=== PATIENT | male | born 1945 | race Caucasian/White ===

== ENCOUNTER → 2022-07-28 10:49 | Outpatient (BNVA) | payer OTHER, SELFPAY | PROVIDERS: PCP Internal Medicine; Visit Provider Internal Medicine Cardiovascular Disease | DX: R42 Dizziness and giddiness (principal) | CPT/HCPCS: 93225 ==

== ENCOUNTER 2023-02-20 14:43 | Emergency (ER) | payer OTHER, SELFPAY ==
[2023-02-20] VITALS (7 sets, daily range): BP systolic 101–147; BP diastolic 64–79; PULSE 75–111; RESP 16–21; TEMP 36.8; O2SAT 95–97; BMI 21.2
--- NOTE | 2023-02-20 16:09 | CTR_ITS ---
PROCEDURE INFORMATION: Exam: CT Head Without Contrast Exam date and time: 02/20/2023 4:22 PM Age: 78 years old Clinical indication: Altered mental status/memory loss and walking, difficulty; Additional info: Abnormal gait TECHNIQUE: Imaging protocol: Computed tomography of the head without contrast. Radiation optimization: All CT scans at this facility use at least one of these dose optimization techniques: automated exposure control; mA and/or kV adjustment per patient size (includes targeted exams where dose is matched to clinical indication); or iterative reconstruction. REPORTING DATA: Count of CT and Cardiac NM exams in prior 12 months: This patient has received 0 known CTs and 0 known cardiac nuclear medicine studies in the 12 months prior to the current study. COMPARISON: No relevant prior studies available. RADIATION DOSE METRICS: Total DLP (mGy-cm): 1037.39 FINDINGS: Brain: Moderate diffuse cortical volume loss. Mild-moderate hypodensities in supratentorial periventricular and subcortical white matter, consistent with microangiopathy. 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 No intracranial hemorrhage. Cerebral ventricles: No ventriculomegaly. Paranasal sinuses: Chronic opacification the right maxillary sinus. The other sinuses are clear. Mastoid air cells: Visualized mastoid air cells are well aerated. Orbital cavities: Prior cataract surgery. Bones/joints: Unremarkable. No acute fracture. Soft tissues: Unremarkable. Vasculature: No hyperdense artery. CT/CT head wo con* [id number] IMPRESSION: 1. No acute intracranial abnormality.
[2023-02-20 16:47] LABS: Basophils % 0.2 %; Hematocrit 45.7 % (42.0-52.0); Hemoglobin 14.8 g/dL (11.7-16.6); Lymphocytes # 0.4 10^3/uL (0.8-4.8); Lymphocytes % 3.8 %; Mean Corpuscular HGB Conc 32.4 g/dL (30.0-36.0); Mean Corpuscular Hemoglobin 32.6 pg (28.0-34.0); Mean Corpuscular Volume 100.7 fl (80-94); Mean Platelet Volume 11.7 fL (7.4-10.4); Monocytes # 0.4 10^3/uL (0.2-0.9); Monocytes % 3.9 %; Neutrophils % 91.7 %; Nucleated Red Blood Cells % 0 %; Platelet Count 178 10^3/cmm (130-400); Red Blood Count 4.54 10^6/uL (4.1-5.3); Red Cell Distribution Width 13.4 % (12.1-15.1); White Blood Count 10.9 10^3/uL (4.0-10.0)
[2023-02-20 17:41] LABS: Alanine Aminotransferase 7 U/L (0-41); Albumin Level 3.5 g/dL (3.5-5.2); Alkaline Phosphatase 107 U/L (40-130); Anion Gap 13.9 (5-19); Aspartate Amino Transferase 14 U/L (0-40); Blood Urea Nitrogen 24 mg/dL (8-23); Calcium 8.4 mg/dL (8.5-10.5); Carbon Dioxide 24 mmol/L (22-29); Chloride 105 mmol/L (98-107); Globulin 2.8 g/dL (1.3-4.6); Glucose 107 mg/dL (65-115); Magnesium 1.8 mg/dL (1.7-2.3); Osmolality Calculated 293 mOsm/kg (285-295); Potassium 3.9 mmol/L (3.5-5.1); Sodium 139 mmol/L (136-145); Total Bilirubin 0.5 mg/dL (0.15-1.2); Total Protein 6.3 g/dL (6.6-8.7)
[2023-02-20 18:26] LABS: Add Urine Microscopic? YES; Bilirubin Urine Neg (Negative); Blood Urine 3+ (Negative); Glucose Urine UA Norm (Normal); Ketones Urine Negative (Negative); Leukocyte Esterase Urine 1+ (Negative); Nitrate Urine Negative (Negative); Protein Urine Neg (Negative); Urine Appearance Hazy (CLEAR); Urine Color Yellow (Yellow); Urobilinogen Urine Norm (Negative); pH Urine 5 (5-7)
--- NOTE | 2023-02-20 18:30 | W.ED.GENADLT ---
HPI - General Adult General: Chief complaint: General Medical Stated complaint: bp high, hips hurt Time Seen by Provider: 02/20/23 15:49 History of Present Illness: 78-year-old male brought to emergency room by his son for vague complaints of weakness and dizziness for about a year now. Cording to the son patient has had multiple work-up done including MRI CT scan and blood work. She was seen a few hospital including the [facility]. Patient was having some symptoms tonight where he felt dizzy with low blood pressure. Upon presenting to emergency room patient is awake and alert no acute distress denies any headache, chest pain, nausea, vomiting, diarrhea or bloody stool. No numbness or tingling. Associated symptoms: Deny confusion, dyspnea, headache(s) or rash Review of Systems General: Reports: 10 or more systems reviewed and unremarkable except in HPI and below Resp: Denies: dyspnea, productive cough, non-productive cough, wheezing, stridor, pain on inspiration, change in phlegm color, hemoptysis or chest congestion : Denies: flank pain, difficulty urinating, dysuria, urinary frequency, urinary urgency, urinary hesitancy, urinary dribbling, difficulty starting urination, change in urine stream, nocturia, oliguria, hematuria, genital pain, genital lesions or penile discharge Skin/Breast: Denies: rash, pruritus, erythema, photosensitivity, skin tenderness, skin swelling, sores, new lesions or changing lesions Neuro: Reports: dizziness; Denies: headache(s), numbness in extremities, sensory changes, lack of coordination, vertigo, confusion, behavioral changes or difficulty communicating thoughts Physical Exam Const: COMMON NORMALS: patient oriented x3 HENMT: COMMON NORMALS: normocephalic, atraumatic, hearing grossly normal bilaterally, external ears normal, EAC's normal, TM's normal bilaterally, Normal external nose present, Normal nasal mucous membranes and turbinates present, moist oral mucous membranes, oropharynx normal, dentition normal and gingiva normal HEAD & SCALP: normocephalic and atraumatic NOSE: Normal external nose present and Normal nasal mucous membranes and turbinates present EXTERNAL EAR: Yes external ears normal EXTERNAL AUDITORY CANAL: EAC's normal TYMPANIC MEMBRANE: TM's normal bilaterally Neck/C-Spine: COMMON NORMALS: full ROM, no lymphadenopathy, supple, no meningeal signs, no JVD, Thyroid normal and No carotid bruits THYROID: Thyroid normal Chest: COMMONS NORMALS: normal inspection of the chest, normal palpation of entire chest wall, normal inspection of the breasts and normal palpation of the breasts Breast/axilla inspection: Yes normal inspection of the breasts BREAST/AXILLA PALPATION: Yes normal palpation of the breasts Resp: COMMON NORMALS: normal respiratory effort, No retractions, No use of accessory muscles, clear to auscultation bilaterally and percussion normal AUSCULTATION: clear to auscultation bilaterally PERCUSSION: percussion normal Cardio: COMMON NORMALS: no JVD, regular rate, regular rhythm, S1 normal heart sound present, S2 normal heart sound present, No gallops present (Cardio), No clicks present (Cardio), No murmurs present (Cardio), No rub (Cardio) and Peripheral pulses 2+ throughout RATE: regular rate RHYTHM: regular rhythm HEART SOUNDS: S1 normal heart sound present and S2 normal heart sound present PERIPHERAL PULSES: Peripheral pulses 2+ throughout GI: COMMON NORMALS: Normal to inspection, nondistended, normoactive bowel sounds present, Soft to palpation, non-tender, No hepatosplenomegaly present, no masses and no bruits PALPATION: Yes Soft to palpation and Yes No hepatosplenomegaly present : COMMON NORMALS: Yes no CVA tenderness BLADDER/KIDNEY EXAM: Yes no CVA tenderness Back/Pelvis: COMMON NORMALS: no CVA tenderness, thoracic and lumbar spine normal to inspection, no thoracic nor lumbar tenderness, thoraco-lumbar ROM normal and straight leg raise negative bilaterally Neuro: CHARISSE COMA SCALE: document GCS findings COMMON NORMALS: patient oriented x3, CN's II-XII intact bilaterally, moves all extremities, no focal motor deficits and no sensory deficits noted MENINGEAL SIGNS: Yes no meningeal signs GAIT: Yes Normal gait present, No Festinating gait present and No Shuffling gait present Psych: COMMON NORMALS: mental status grossly normal, Normal thought process present, cooperative, normal affect, speech normal, activity/motor behavior normal, denies hallucinations, denies homicidal ideation and denies suicidal ideation SPEECH: Yes normal speech THOUGHT PROCESS: Normal thought process present Course Reevaluation(s): Reevaluation #1: Upon assessment patient was found to be orthostatic and I recommend admission for further evaluation and treatment patient declined admission at this time. Vital Signs: Vital signs: Vital Signs Temperature 98.2 F 02/20/23 14:58 Pulse Rate 81 02/20/23 18:54 Respiratory Rate 17 02/20/23 18:00 Blood Pressure 101/79 02/20/23 18:54 Pulse Oximetry 96 02/20/23 18:00 Oxygen Delivery Me thod Room Air 02/20/23 18:00 MDM - General Adult Medical Decision Making Admit comfortable emergency room. CT scan of the head was obtained. Labs was obtained. Patient had multiple reassessment. Differential Diagnosis CVA, brain bleed, electrolyte abnormality, UTI, Medical Records I reviewed the patient's medical records. Lab Data 02/20/23 16:39 02/20/23 17:[address] 02/20/23 16:09 IMPRESSION: 1. No acute intracranial abnormality. Laboratory Results WBC 10.9 10^3/uL (4.0-10.0) H 02/20/23 16:39 RBC 4.54 10^6/uL (4.1-5.3) 02/20/23 16:39 Hgb 14.8 g/dL (11.7-16.6) 02/20/23 16:39 Hct 45.7 % (42.0-52.0) 02/20/23 16:39 MCV 100.7 fl (80-94) H 02/20/23 16:39 MCH 32.6 pg (28.0-34.0) 02/20/23 16:39 MCHC 32.4 g/dL (30.0-36.0) 02/20/23 16:39 RDW 13.4 % (12.1-15.1) 02/20/23 16:39 Plt Count 178 10^3/cmm (130-400) 02/20/23 16:39 MPV 11.7 fL (7.4-10.4) H 02/20/23 16:39 Neut % (Auto) 91.7 % 02/20/23 16:39 Lymph % (Auto) 3.8 % 02/20/23 16:39 [place] % (Auto) 3.9 % 02/20/23 16:39 Eos % (Auto) 0.0 % 02/20/23 16:39 Baso % (Auto) 0.2 % 02/20/23 16:39 Neut # (Auto) 10.00 10^3/uL (1.8-7.7) H 02/20/23 16:39 Lymph # (Auto) 0.4 10^3/uL (0.8-4.8) L 02/20/23 16:39 [place] # (Auto) 0.4 10^3/uL (0.2-0.9) 02/20/23 16:39 Eos # (Auto) 0.0 10^3/uL (0.0-0.8) 02/20/23 16:39 Baso # (Auto) 0.0 10^3/uL (0.0-0.1) 02/20/23 16:39 Nucleated RBC % (auto) 0 % 02/20/23 16:39 Nucleated RBCs # 0.0 /100WBC 02/20/23 16:39 Sodium 139 mmol/L (136-145) 02/20/23 17:10 Potassium 3.9 mmol/L (3.5-5.1) 02/20/23 17:10 Chloride 105 mmol/L (98-107) 02/20/23 17:10 Carbon Dioxide 24 mmol/L (22-29) 02/20/23 17:10 Anion Gap 13.9 (5-19) 02/20/23 17:10 BUN 24 mg/dL (8-23) H 02/20/23 17:10 Creatinine 1.3 mg/dL (0.7-1.2) H 02/20/23 17:10 GFR Calculation Not Reportable 02/20/23 17:10 Glucose 107 mg/dL (65-115) 02/20/23 17:10 Calculated Osmolality 293 mOsm/kg (285-295) 02/20/23 17:10 Calcium 8.4 mg/dL (8.5-10.5) L 02/20/23 17:10 Magnesium 1.8 mg/dL (1.7-2.3) 02/20/23 17:10 Total Bilirubin 0.5 mg/dL (0.15-1.2) 02/20/23 17:10 AST 14 U/L (0-40) 02/20/23 17:10 ALT 7 U/L (0-41) 02/20/23 17:10 Alkaline Phosphatase 107 U/L (40-130) 02/20/23 17:10 Total Protein 6.3 g/dL (6.6-8.7) L 02/20/23 17:10 Albumin 3.5 g/dL (3.5-5.2) 02/20/23 17:10 Globulin 2.8 g/dL (1.3-4.6) 02/20/23 17:10 Urine Color Yellow (Yellow) 02/20/23 17:40 Urine Appearance Hazy (CLEAR) A 02/20/23 17:40 Urine pH 5 (5-7) 02/20/23 17:40 Ur Specific [place] 1.020 (1.005-1.030) 02/20/23 17:40 Urine Protein Neg (Negative) 02/20/23 17:40 Urine Glucose (UA) Norm (Normal) 02/20/23 17:40 Urine Ketones Negative (Negative) 02/20/23 17:40 Urine Blood 3+ (Negative) H 02/20/23 17:40 Urine Nitrate Negative (Negative) 02/20/23 17:40 Urine Bilirubin Neg (Negative) 02/20/23 17:40 Urine Urobilinogen Norm mg/dL (Negative) 02/20/23 17:40 Ur Leukocyte Esterase 1+ (Negative) H 02/20/23 17:40 Urine RBC 50-80 /hpf (0-2) H 02/20/23 17:40 Urine WBC 5-10 /hpf (0-5) H 02/20/23 17:40 Ur Squamous Epith Cells None /hpf (0-5) 02/20/23 17:40 Amorphous Sediment Not Reportable 02/20/23 17:40 Urine Bacteria Trace /hpf (NONE) 02/20/23 17:40 Urine Mucus 1+ /hpf 02/20/23 17:40 Discharge Plan Discharge Patient Disposition: Home Clinical Impression: Dizziness Condition: Stable Discharge Orders: Discharge ED (Routine); Ordered 02/20/23 Ordered By: Nasir Zee Referrals: Daniel Dozier MD [Primary Care Provider] - Discharge Diet: Advance as tolerated Discharge Activity: Resume usual activity Patient Instructions: Opioid Safety, Pain Management Coding Level of Care Code ED Consulting Analyst for Chg Linden
[2023-02-20 18:33] LABS: Add Urine Culture? Yes; Bacteria Urine TRACE /hpf; Mucus Urine 1+ /hpf; RBC Urine 50-80 /hpf (0-2)
== END 2023-02-20 19:28 | disposition home or self-care (01) ==
PROVIDERS: Emergency Provider Family Medicine; PCP Internal Medicine
DX: R42 Dizziness and giddiness (principal)
CPT/HCPCS: 36415; 70450; 80053; 81001; 83735; 85025; 87077; 87086; 87186; 99284

== ENCOUNTER 2025-01-15 13:52 | Inpatient (IN) | payer OTHER, SELFPAY ==
[2025-01-15] VITALS (85 sets, daily range): BP systolic 121–158; BP diastolic 75–106; PULSE 61–105; RESP 12–29; TEMP 36.4–37; O2SAT 80–98
--- NOTE | 2025-01-15 13:56 | ECG_ITS ---
[employer] Test Date: 2025-01-15 Pat Name: Adair Vaughan Department: Room: Gender: Male [employer] Supervisor: : 1945 Requested By: Akbar Kenney Order Number: [id number] Daniel MD: KIYA PARKER Measurements Intervals [place] Rate: 84 P: 30 ID: [id number] QRS: 11 QRSD: 84 T: 9 QT: 363 QTc: 430 Interpretive Statements SINUS RHYTHM WITH SINUS ARRHYTHMIA MINIMAL VOLTAGE CRITERIA FOR LVH, CONSIDER NORMAL VARIANT [MEETS CRITERIA IN ONE OF: R(aVL), S(V1), R(V5), R(V5/V6)+S(V1)] No previous ECG available for comparison Electronically Signed On 01-17-2025 23:33:47 CDT by KIYA PARKER [email or web address] [id number]
[2025-01-15 14:18] LABS: Basophils % 0.6 %; Eosinophils % 0.1 %; Hematocrit 43.8 % (37-53); Lymphocytes % 14.7 %; Mean Corpuscular HGB Conc 32.2 g/dL (30-55); Mean Corpuscular Hemoglobin 32.3 pg (27-33); Mean Corpuscular Volume 100.2 fl (82-101); Monocytes # 0.5 10^3/uL (0.2-0.9); Monocytes % 7.2 %; Neutrophils # 5.32 10^3/uL (1.8-7.7); Neutrophils % 76.7 %; Nucleated Red Blood Cells % 0 %; Platelet Count 142 10^3/cmm (157-399); Red Blood Count 4.37 10^6/uL (3.85-5.65); Red Cell Distribution Width 13.7 % (12.1-15.1); White Blood Count 6.94 10^3/uL (3.29-11.43)
--- NOTE | 2025-01-15 14:22 | PC.PHAR ---
Patient takes a memory pill and an anxiety pill . Son states that either one knows the name. [facility] strengths.
--- NOTE | 2025-01-15 14:30 | W.ED.SYNCOPE ---
HPI - Syncope General: Chief Complaint: Syncope Stated Complaint: Syncope Time Seen by Provider: 01/15/25 13:55 History of Present Illness: 79-year-old male to the emergency room with syncopal episodes. He had syncope earlier today he fell off of a lawnmower hurt his left shoulder then later in the day fell off of the toilet. He gets lightheaded dizzy whenever he stands up according to his son is with him this is actually being going on intermittently for a couple of years he has [facility] they had evidently not found any ongoing issues. He is not on any antihypertensive. He has no history of DVT or PE no episodes of chest pain associated with the syncopal events. He is not on any anticoagulants he does have some dementia and is on donepezil and memantine. Associated symptoms: Deny abdominal pain, chest pain or fever(s) Related Data Home Medications ?Medication ?Instructions ?Recorded ?Confirmed acetaminophen 325 mg tablet 650 mg PO QID PRN Pain 01/15/25 01/15/25 (Tylenol) donepezil 10 mg tablet 10 mg PO QPM 01/15/25 01/15/25 memantine 10 mg tablet 10 mg PO BID 01/15/25 01/15/25 Allergies Allergy/AdvReac Type Severity Reaction Status Date / Time No Known Allergies Allergy Unverified 02/20/23 15:02 Review of Systems Const: Denies: fever(s) or chills Card: Denies: chest pain Resp: Denies: dyspnea GI: Denies: abdominal pain : Denies: dysuria, urinary frequency or urinary urgency Musc: Reports: joint pain; Denies: neck pain or back pain Skin/Breast: Denies: rash Physical Exam Const: GENERAL APPEARANCE: cooperative ORIENTATION/CONSCIOUSNESS: Yes awake HENMT: COMMON NORMALS: normocephalic, atraumatic and hearing grossly normal bilaterally HEAD & SCALP: normocephalic and atraumatic Resp: COMMON NORMALS: normal respiratory effort, No retractions, No use of accessory muscles and clear to auscultation bilaterally AUSCULTATION: clear to auscultation bilaterally Cardio: COMMON NORMALS: regular rate, regular rhythm and No murmurs present (Cardio) RATE: regular rate RHYTHM: regular rhythm GI: COMMON NORMALS: Soft to palpation and No hepatosplenomegaly present AUSCULTATION: Yes normoactive bowel sounds PALPATION: Yes Soft to palpation, No Tenderness to palpation present (GI), No Guarding due to palpation present (GI) and Yes No hepatosplenomegaly present Extremity: COMMON NORMALS: normal to inspection, capillary refill normal, no clubbing, cyanosis or edema, no calf tenderness and no pedal edema Skin: COMMON NORMALS: no rashes or lesions noted GENERAL SKIN EXAM: no rashes or lesions noted Course Vital Signs: Vital signs: Vital Signs Temperature 97.9 F 01/15/25 13:54 Pulse Rate 75 01/15/25 16:57 Respiratory Rate 14 01/15/25 13:54 Blood Pressure 129/89 01/15/25 16:57 Pulse Oximetry 93 01/15/25 16:57 Oxygen Delivery Me thod Room Air 01/15/25 16:30 MDM - Syncope Medical Decision Making Imaging shows a comminuted clavicle fracture with some AC joint separation. We had also had a CT of the head and neck these were unremarkable CT of the chest shows bilateral PE largest burden on the right, no rib fractures were noted. Clavicle fracture itself would not require admission however syncopal episodes associated with previously and diagnosed PE is quite concerning. Discussed with Dr. Rock he said he would follow along as an inpatient regarding the clavicle fracture he was aware that there is a hematoma about it and that we will need to be anticoagulating the patient because of the PE. Discussed with Dr. Miles after this he will admit to the hospital. Orders are written have included echocardiogram and ultrasound lower extremities for DVT. Discussed findings with the patient and his son that patient has no known previous history of PEs or DVT he has not had any previous history of cancer diagnosis. Medical Records I reviewed the patient's medical records. Lab Data I reviewed the patient's lab results. 01/15/25 14:10 01/15/25 14:10 Radiology Impressions Cervical Spine CT 01/15/25 14:38 IMPRESSION: 1. No acute cervical spine fracture. 2. Extensive facet joint arthropathy greatest on the LEFT. No high-grade central stenosis. Chest CT 01/15/25 14:38 IMPRESSION: 1. Bilateral pulmonary emboli. Largest burden in the proximal RIGHT lower lobe pulmonary artery. Additional more peripheral segmental and subsegmental emboli. 2. No pneumothorax. 3. No pulmonary contusion. 4. LEFT clavicular fracture. Fractures in both the medial and lateral clavicle with adjacent hematoma. 5. No rib fracture identified. There is motion artifact from breathing obscuring detail. Nondisplaced rib or clavicle fracture would be difficult to visualize. 6. Moderate cardiomegaly. 7. Intact thoracic aorta. 8. Hepatic cysts. Notified Akbar Magana DO at 01/15/2025 3:[address] 01/15/25 14:38 IMPRESSION: 1. No acute intracranial hemorrhage or edema. 2. Moderate cerebral and cerebellar volume loss and small vessel disease. 3. Bilateral lacunar infarcts in the basal ganglia. 4. RIGHT maxillary sinusitis. Chronic inspissated material fills the RIGHT maxillary sinus. Clavicle X-Ray 01/15/25 14:44 IMPRESSION: 1. Nondisplaced fractures of the distal and medial LEFT clavicle. AC joint separation. Shoulder X-Ray 01/15/25 14:44 IMPRESSION: 1. Comminuted nondisplaced distal clavicle fracture. There may be low-grade AC joint separation also. Laboratory Results WBC 6.94 10^3/uL (3.29-11.43) 01/15/25 14:10 RBC 4.37 10^6/uL (3.85-5.65) 01/15/25 14:10 Hgb 14.10 g/dL (11.27-16.99) 01/15/25 14:10 Hct 43.8 % (37-53) 01/15/25 14:10 MCV 100.2 fl (82-101) 01/15/25 14:10 MCH 32.3 pg (27-33) 01/15/25 14:10 MCHC 32.2 g/dL (30-55) 01/15/25 14:10 RDW 13.7 % (12.1-15.1) 01/15/25 14:10 Plt Count 142 10^3/cmm (157-399) L 01/15/25 14:10 MPV 11.0 fL (7.4-10.4) H 01/15/25 14:10 Neut % (Auto) 76.7 % 01/15/25 14:10 Lymph % (Auto) 14.7 % 01/15/25 14:10 [place] % (Auto) 7.2 % 01/15/25 14:10 Eos % (Auto) 0.1 % 01/15/25 14:10 Baso % (Auto) 0.6 % 01/15/25 14:10 Neut # (Auto) 5.32 10^3/uL (1.8-7.7) 01/15/25 14:10 Lymph # (Auto) 1.0 10^3/uL (0.8-4.8) 01/15/25 14:10 [place] # (Auto) 0.5 10^3/uL (0.2-0.9) 01/15/25 14:10 Eos # (Auto) 0.0 10^3/uL (0.0-0.8) 01/15/25 14:10 Baso # (Auto) 0.0 10^3/uL (0.0-0.1) 01/15/25 14:10 Nucleated RBC % (auto) 0 % 01/15/25 14:10 Nucleated RBCs # 0.0 /100WBC 01/15/25 14:10 Sodium 137 mmol/L (136-145) 01/15/25 14:10 Potassium 4.6 mmol/L (3.5-5.1) 01/15/25 14:10 Chloride 102 mmol/L (98-107) 01/15/25 14:10 Carbon Dioxide 24 mmol/L (22-29) 01/15/25 14:10 Anion Gap 15.6 (5-19) 01/15/25 14:10 BUN 16 mg/dL (8-23) 01/15/25 14:10 Creatinine 1.3 mg/dL (0.7-1.2) H 01/15/25 14:10 GFR Calculation Not Reportable 01/15/25 14:10 Glucose 146 mg/dL (65-115) H 01/15/25 14:10 Calculated Osmolality 288 mOsm/kg (285-295) 01/15/25 14:10 Calcium 8.6 mg/dL (8.5-10.5) 01/15/25 14:10 Total Bilirubin 0.7 mg/dL (0.15-1.2) 01/15/25 14:10 AST 15 U/L (0-40) 01/15/25 14:10 ALT 12 U/L (0-41) 01/15/25 14:10 Alkaline Phosphatase 167 U/L (40-130) H 01/15/25 14:10 Troponin T Baseline 26 ng/L (0-15) H 01/15/25 14:10 Troponin T 120 Minute 24.31 ng/L (0-15) H 01/15/25 15:53 Delta Troponin T -1.69 ABS# (0-10) L 01/15/25 15:53 NT-Pro-B Natriuret Pep 1545 pg/mL (0-450) H 01/15/25 16:01 Total Protein 5.8 g/dL (6.6-8.7) L 01/15/25 14:10 Albumin 3.3 g/dL (3.5-5.2) L 01/15/25 14:10 Globulin 2.5 g/dL (1.3-4.6) 01/15/25 14:10 All radiology interpretation(s) finalized by discharge Discharge Plan Discharge Patient Disposition: Admitted As Inpatient Admit Provider: Lisa Miles Clinical Impression: Pulmonary embolism, Syncope, Fx clavicle shaft-closed Condition: Stable Coding Level of Care Code ED Attendant [employer] Service Store for Zachariah Cheatham
[2025-01-15 14:35] LABS: Troponin(5th) Baseline 26 ng/L (0-15)
[2025-01-15 14:36] LABS: Alanine Aminotransferase 12 U/L (0-41); Albumin Level 3.3 g/dL (3.5-5.2); Alkaline Phosphatase 167 U/L (40-130); Anion Gap 15.6 (5-19); Aspartate Amino Transferase 15 U/L (0-40); Blood Urea Nitrogen 16 mg/dL (8-23); Calcium 8.6 mg/dL (8.5-10.5); Carbon Dioxide 24 mmol/L (22-29); Chloride 102 mmol/L (98-107); Creatinine Clr Calc Pharmacy 43.7536; Globulin 2.5 g/dL (1.3-4.6); Glucose 146 mg/dL (65-115); Osmolality Calculated 288 mOsm/kg (285-295); Potassium 4.6 mmol/L (3.5-5.1); Sodium 137 mmol/L (136-145); Total Bilirubin 0.7 mg/dL (0.15-1.2); Total Protein 5.8 g/dL (6.6-8.7)
--- NOTE | 2025-01-15 14:38 | CT_ITS ---
WS: [id number] CT chest w con* [id number] HISTORY: trauma TECHNIQUE: Axial imaging performed through the thorax. Coronal and sagittal reformats are submitted. All CT scans at [facility] use at least one of these dose optimization techniques: automated exposure control; mA and/or kV adjustment per patient size (includes targeted exams where dose is matched to clinical indication); or iterative reconstruction. CONTRAST: Omnipaque 350; 100 mL IV. DLP: 371.79 mGy.cm COMPARISON: None available. Lungs and central airway: Mild dependent changes at the lung bases. Mild hazy attenuation at the lung bases would be improved with better inspiratory effort. No mass identified. Pleura: Normal. No pleural effusion. Heart and pericardium: Moderate cardiomegaly. Greater enlargement of the LEFT heart. No RIGHT heart strain. Mediastinum and [place]: No pathologically enlarged lymph nodes. Single indeterminate 12 mm subcarinal lymph node. Vessels: Good opacification of the thoracic aorta and pulmonary arteries. Main pulmonary artery is normal size. RIGHT and LEFT pulmonary arteries are slightly prominent measuring up to 2.8 cm. Moderate pulmonary embolic burden beginning in the proximal RIGHT lower lobe pulmonary artery with emboli extending into the segmental and subsegmental branches. Smaller thrombi in the RIGHT middle and RIGHT upper lobe pulmonary arteries. Nonocclusive thrombus segmental branch LEFT lower lobe. Ectatic thoracic aorta. Mild atherosclerotic plaque. Chest wall and lower neck: No soft tissue masses. Upper abdomen: Hepatic cyst 1 3.6 cm is increased in size since 2019. Distal peripherally enhancing mass consistent with a hemangioma in the LEFT lobe measures 1.7 cm. Tiny cyst upper pole LEFT kidney. No adrenal mass. Osseous structures: Increase in thoracic kyphosis. Osteopenia. Nondisplaced fractures LEFT clavicle in several locations. Soft tissue hematoma over the chest wall at the site of the LEFT clavicular fracture. RIGHT clavicle is intact. No definite rib fractures are identified. No LEFT scapular fracture. There is motion artifact which is obscuring bony detail. CT/CT chest w con* [id number] IMPRESSION: 1. Bilateral pulmonary emboli. Largest burden in the proximal RIGHT lower lobe pulmonary artery. Additional more peripheral segmental and subsegmental emboli . 2. No pneumothorax. 3. No pulmonary contusion. 4. LEFT clavicular fracture. Fractures in both the medial and lateral clavicle with adjacent hematoma. 5. No rib fracture identified. There is motion artifact from breathing obscuri ng detail. Nondisplaced rib or clavicle fracture would be difficult to visualiz e. 6. Moderate cardiomegaly. 7. Intact thoracic aorta. 8. Hepatic cysts. Notified Akbar Magana DO at 01/15/2025 3:34 PM.
--- NOTE | 2025-01-15 14:38 | CT_ITS ---
WS: [id number] CT HEAD NONCONTRAST HISTORY: trauma TECHNIQUE: Contiguous axial imaging performed through the brain. Bone and soft tissue windows. Sagittal and coronal reformats reviewed. All CT scans at [facility] use at least one of these dose optimization techniques: automated exposure control; mA and/or kV adjustment per patient size (includes targeted exams where dose is matched to clinical indication); or iterative reconstruction. DLP: 1408.68 mGy.cm COMPARISON: 02/20/2023 No acute intracranial hemorrhage, midline shift or mass effect. Diffuse moderate volume loss within the cerebrum and cerebellum. Moderate small vessel disease and several scattered lacunar infarcts in the basal ganglia. Larger lacunar infarct involving the RIGHT internal capsule. Ventricles: Ventricles and extra-axial spaces are prominent on the basis of atrophy. No inferior displacement of the cerebellar tonsils. Paranasal sinuses: Complete heterogeneous opacification of the RIGHT maxillary sinus. Mastoid air cells: Well pneumatized. Calvarium and scalp: Skull is intact with no soft tissue edema or swelling. Moderate calcified plaque in the intracranial carotid arteries. CT/CT head wo con* [id number] IMPRESSION: 1. No acute intracranial hemorrhage or edema. 2. Moderate cerebral and cerebellar volume loss and small vessel disease. 3. Bilateral lacunar infarcts in the basal ganglia. 4. RIGHT maxillary sinusitis. Chronic inspissated material fills the RIGHT max illary sinus.
--- NOTE | 2025-01-15 14:38 | XR_ITS ---
WS: [id number] Exam: XR shoulder RT min 2V* [id number] Date/Time of Exam: 01/15/2025 2:38 PM Reason For Exam: trauma There is a comminuted nondisplaced fracture of the distal clavicle. No other fractures are identified. No dislocation.
--- NOTE | 2025-01-15 14:38 | CT_ITS ---
WS: [id number] CT CERVICAL SPINE HISTORY: trauma TECHNIQUE: Contiguous 2.0 mm axial imaging performed through the entire cervical spine. Sagittal and coronal reformats also performed. All CT scans at [facility] use at least one of these dose optimization techniques: automated exposure control; mA and/or kV adjustment per patient size (includes targeted exams where dose is matched to clinical indication); or iterative reconstruction. DLP: 1408.68 mGy.cm COMPARISON: None available. Increase in the cervical lordosis. Mild diffuse osteopenia. No acute fracture. Facet joints are narrowed. Lateral masses of C1 and C2 are aligned. The odontoid is intact. C2-C3: Moderate LEFT facet joint arthropathy. No stenosis. C3-C4: Bilateral facet joint arthritis, mild RIGHT foraminal stenosis. C4-C5: Mild osteophytic ridging with severe LEFT facet joint arthropathy. Hypertrophic facet joints with mild foraminal stenosis. C5-C6: Bilateral facet joint arthropathy. Hypertrophic bone formation. Moderate RIGHT and mild LEFT foraminal stenosis. C6-C7: Bilateral facet joint arthritis and facet hypertrophy. Mild foraminal stenosis. C7-T1: Mild foraminal stenosis and facet arthritis. Lung apices are clear. CT/CT cervical spin wo con* [id number] IMPRESSION: 1. No acute cervical spine fracture. 2. Extensive facet joint arthropathy greatest on the LEFT. No high-grade centr al stenosis.
--- NOTE | 2025-01-15 14:44 | XR_ITS ---
WS: [id number] Exam: XR shoulder RT min 2V* [id number] Date/Time of Exam: 01/15/2025 2:38 PM Reason For Exam: trauma There is a comminuted nondisplaced fracture of the distal clavicle. No other fractures are identified. No dislocation. XR/XR shoulder LT min 2V* [id number] IMPRESSION: 1. Comminuted nondisplaced distal clavicle fracture. There may be low-grade AC joint separation also.
--- NOTE | 2025-01-15 14:44 | XR_ITS ---
WS: [id number] Exam: [place] [id number] Date/Time of Exam: 01/15/2025 2:55 PM Reason For Exam: trauma There is a nondisplaced comminuted fracture of the distal clavicle. There is also a second nondisplaced fracture of the medial LEFT clavicle. Separation of the AC joint. No other fractures. XR/[place] [id number] IMPRESSION: 1. Nondisplaced fractures of the distal and medial LEFT clavicle. AC joint sepa ration.
[2025-01-15] MEDS: iohexol 350 mg/mL 500 mL Btl (per mL) IV (14:56)
--- NOTE | 2025-01-15 15:34 | ECG_ITS ---
[facility] Test Date: 2025-01-15 Pat Name: Adair Vaughan Department: Room: Gender: Male [employer]icker: : 1945 Requested By: Akbar Kenney Order Number: [id number] Reading MD: KIYA PARKER Measurements Intervals [place] Rate: 83 P: 0 MO: 0 QRS: 32 QRSD: 87 T: 7 QT: 371 QTc: 438 Interpretive Statements SINUS RYTHM WITH PACS ABNORMAL RHYTHM ECG Compared to ECG 01/15/2025 13:54:25 THERE IS NO CHANGE Electronically Signed On 01-17-2025 23:41:50 CDT by KIYA PARKER [email or web address] [id number]
--- NOTE | 2025-01-15 15:57 | USCV_ITS ---
Adair Vaughan Age: 79 Gender: M : 1945 Exam Date: 01/15/2025 16:21 Ordering Phys: Akbar Magana DO Technologist: LYLA Exam Location: [facility] – [place] Indication: Hypotention, PE BP: 127 / 81 HR: 76 Rhythm: Sinus Technical Quality: Adequate MEASUREMENTS (Male / Female) Normal Values 2D ECHO LV Diastolic Diameter PLAX 5.4 cm 4.2 - 5.9 / 3.9 - 5.3 cm IVS Diastolic Thickness 1.1 cm 0.6 - 1.0 / 0.6 - 0.9 cm IVS Systolic Thickness 1.2 cm LVPW Diastolic Thickness 1.4 cm 0.6 - 1.0 / 0.6 - 0.9 cm LVPW Systolic Thickness 1.7 cm LVOT Diameter 2.1 cm LV Ejection Fraction 2D Teich 54.0 % LV Ejection Fraction MOD 4C 51.0 % LV Ejection Fraction MOD 2C 67.2 % LV Ejection Fraction 2C AL 68.5 % LA Diameter 4.3 cm RA Systolic Volume 4C AL 32.7 ml RA Systolic Volume 4C MOD 31.0 ml Aorta at Sinotubular Diameter 3.9 cm M-MODE LA Ao Ratio MM 1.6 AV Cusp Separation MM 1.9 cm DOPPLER AV Peak Velocity 83.0 cm/s AV Area Cont Eq vti 3.4 cm squared AV Area Cont Eq pk 4.0 cm squared MV Peak Velocity 80.0 cm/s MV Area PHT 5.2 cm squared Mitral E to A Ratio 0.8 TR Peak Velocity 200.0 cm/s TR Peak Gradient 16.0 mmHg TV Peak E Velocity 79.0 cm/s PV Peak Velocity 98.0 cm/s FINDINGS Left Ventricle Left ventricle is normal in size. LV systolic function is normal with EF of 55-60%. No regional wall motion abnormalities. Grade 1 diastolic dysfunction Right Ventricle Normal in size and function Right Atrium Normal in size Left Atrium Normal in size Mitral Valve Structurally normal mitral valve. Mild mitral regurgitation. Aortic Valve Grossly normal. No significant stenosis or regurgitation. Tricuspid Valve Insufficient TR jet to calculate RVSP Pulmonic Valve Not well visualized Pericardium Normal Aorta Ascending aorta is dilated IVC Not well visualized CONCLUSIONS LV systolic function is normal with EF of 55-60% Grade 1 diastolic dysfunction Mild mitral regurgitation Ascending aorta is dilated No comparison studies are available. Alpesh Rendon MD (Electronically Signed) Final Date: 16 Jan 2025 20:07 S
--- NOTE | 2025-01-15 15:57 | USR_ITS ---
PROCEDURE INFORMATION: Exam: US Duplex Lower Extremity Veins, Bilateral Exam date and time: 01/15/2025 4:35 PM Age: 79 years old Clinical indication: Pain; Leg, lower; Bilateral; Additional info: Pe TECHNIQUE: Imaging protocol: Real-time duplex ultrasound of the bilateral extremities with 2-D curiel scale, color Doppler flow and spectral waveform analysis including responses to compression and other maneuvers (when performed) with image documentation. Complete exam focused on the lower extremity veins. COMPARISON: US renal BI* [id number] 03/26/2019 8:41 AM FINDINGS: Right deep veins: There is thrombosis involving the superficial femoral vein. The common femoral vein and popliteal vein are patent. Left deep veins: Unremarkable. The common femoral, femoral, proximal profunda femoral and popliteal veins are patent without thrombus. Normal Doppler waveforms. Normal compressibility and/or augmentation response. Superficial veins: Greater saphenous veins at the saphenofemoral junctions are patent bilaterally without thrombus. Soft tissues: Unremarkable. US/[place] [id number] IMPRESSION: There is evidence of DVT involving the right superficial femoral vein
[2025-01-15 16:16] LABS: Troponin 5 2HR 24.31 ng/L (0-15); Troponin 5 2HR Delta -1.69 ABS# (0-10)
[2025-01-15 16:26] LABS: NT Pro B Type Natriuretic Pept 1545 pg/mL (0-450)
[2025-01-15] MEDS: heparin drip 25,000 UNIT/500 ML PREMIX 25.86 UNIT IV (16:56)
--- NOTE | 2025-01-15 17:10 | PM.HP ---
Providers/Chief Complaint Admitting Physician: Lisa Miles MD Primary Care Provider: Daniel Dozier Chief Complaint: Syncope History of Present Illness Adair Vaughan is a 79 year old male with past medical history of early dementia on donepezil and memantine by primary care doctor, long-term ongoing issues of dizziness, syncope and collapse presented to the hospital today after another syncopal episode. Patient was apparently mowing the lawn and had an episode of syncope and collapse. Patient's son found him on the ground and brought him to the hospital. Patient states that patient does have issues with blood pressure being low and at times has been 80/50 and will have syncope and collapse. Patient states that this has been going for a long time. He has a lot of concerns regarding patient's syncopal episodes. He also reports having headaches for 1 to 2 years is a former smoker quit at the age of 39. Also reports hematochezia from time to time and hematuria however lately has not had that issue. Patient's son states that patient sleeps a lot during the day. He states he has a history of BPH and has had complete evaluation however malignancy was never found. This was years ago when he saw urology. He also had a colonoscopy but that was years ago. He states he brought his father to the ER 1 or 2 years ago with similar complaints and recommendation was to admit the patient at the time however patient declined admission. Today patient denies nausea vomiting diarrhea chest pain shortness of breath headache hematochezia, hematuria. Review of systems all negative at this point. ER course patient was found to have creatinine 1.3, baseline troponin 26, 2-hour troponin 24.31, delta Trope -1.69. BNP 1545. Albumin 3.3. Blood pressure on arrival 127/89. He had various imaging studies done: Shoulder x-ray:Comminuted nondisplaced distal clavicle fracture. There may be low-grade AC joint separation also Clavicle x-ray: Nondisplaced fracture of distal and medial left clavicle. AC joint separation Head CT: No acute intracranial hemorrhage or edema, moderate cerebral and cerebellar volume loss and small vessel disease, bilateral lacunar infarcts in basal ganglia, right maxillary sinusitis, chronic inspissated material filled right maxillary sinus #CT chest: 1. Bilateral pulmonary emboli. Largest burden in the proximal RIGHT lower lobe pulmonary artery. Additional more peripheral segmental and subsegmental emboli. 2. No pneumothorax. 3. No pulmonary contusion. 4. LEFT clavicular fracture. Fractures in both the medial and lateral clavicle with adjacent hematoma. 5. No rib fracture identified. There is motion artifact from breathing obscuring detail. Nondisplaced rib or clavicle fracture would be difficult to visualize. 6. Moderate cardiomegaly. 7. Intact thoracic aorta. 8. Hepatic cysts. #Cervical spine CT: 1. No acute cervical spine fracture. 2. Extensive facet joint arthropathy greatest on the LEFT. No high-grade central stenosis. Case was discussed with ribbon weaver orthopedic surgeon Dr. Rock regarding clavicle fracture. Conservative management recommended at this time. Small hematoma noted at level of clavicle fracture. Orthopedic surgery okay with anticoagulation for pulmonary embolism. Venous Dopplers positive for right superficial femoral vein thrombosis. Medications/Allergies Home Medications ?Medication ?Instructions ?Recorded ?Confirmed ?Last Taken ?Type acetaminophen 325 mg tablet 650 mg PO QID PRN Pain 01/15/25 01/15/25 Unknown History (Tylenol) donepezil 10 mg tablet 10 mg PO QPM 01/15/25 01/15/25 01/14/25 20:00 History memantine 10 mg tablet 10 mg PO BID 01/15/25 01/15/25 01/14/25 History Allergies Allergy/AdvReac Type Severity Reaction Status Date / Time No Known Allergies Allergy Unverified 02/20/23 15:02 Vitals/I&O/Wt Last Vital Signs Temp 97.9 F 01/15/25 13:54 Pulse 75 01/15/25 16:57 Resp 14 01/15/25 13:54 BP 129/89 01/15/25 16:57 Pulse Ox 93 01/15/25 16:57 O2 Del Method Room Air 01/15/25 16:30 01/15/25 01/15/25 01/15/25 06:59 14:59 22:59 Intake Total 300 / 300 Balance 300 / 300 Weight last 48 hrs Weight 68.039 kg Physical Exam Narrative: General: Alert oriented x3, patient seen laying in bed appearing comfortable with son at bedside. No conversational dyspnea, no acute distress HEENT: Normocephalic, atraumatic, EOMI, breathing room air Cardio: Regular rate rhythm, normal S1-S2, no gross murmurs noted. Respiratory: Good bilateral air entry, no wheezes no rhonchi appreciated GI: Abdomen soft, nontender, nondistended, bowel sounds + Behavior: Appropriate and cooperative Extremities: No edema bilateral lower extremities, both calves symmetrical Data 01/15/25 14:10 01/15/25 14:10 A&P Assessment and plan (1) Pulmonary embolism: (2) Fx clavicle shaft-closed: (3) Syncope: (4) Collapse: (5) DVT (deep venous thrombosis): (6) Hematoma: Plan #Bilateral pulmonary emboli #Right leg DVT #Left clavicular fracture with adjacent hematoma #Syncope, collapse #History of basal ganglia lacunar infarct/stroke #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 Possible vasovagal? ? He does have evidence of DVT and bilateral pulmonary embolism. Rule out malignancy ? Check CT chest abdomen pelvis without contrast. ? Does have a creatinine of 1.3. Baseline unknown. I will hold off on giving contrast at this time ? He will need hematology referral at discharge ? Placed on heparin drip and anticoagulate patient. ? Plan to discharge on Eliquis. However will discuss with patient regarding patient's syncope and collapse episodes as there may be risk of brain bleed. Will discuss with him regarding benefits and risks before discharging on Eliquis ? PT OT ? Placed on cardiac telemetry. Will evaluate for arrhythmias. Check cardiac echo ? Recommend 30-day event monitor to rule out cardiac cause of syncope ? Check orthostatic vitals in a.m. ? Continue normal saline 75 cc/h ? Check lipid profile, TSH, hemoglobin A1c - Consult orthopedic surgery, await recommendations - check cbc at 10 pm Full Code DVT PPX: pt on heparin drip PDMP PDMP Reviewed: Not Reviewed Attestations Medical Necessity Statement*: PE, DVT, on heparin drip Diagnoses Pulmonary embolism I26.94 Pulmonary embolism type: multiple subsegmental (without acute cor pulmonale) Fx clavicle shaft-closed S42.025A Encounter type: initial encounter Fracture alignment: nondisplaced Laterality: left Syncope R55 Syncope type: unspecified Collapse R55 DVT (deep venous thrombosis) I82.409 Hematoma T14.8XXA
[2025-01-15] MEDS: donepezil 5 MG Tablet 10 MG PO (17:48)
[2025-01-15] MEDS: memantine 5 mg tablet 10 MG PO (17:48)
--- NOTE | 2025-01-15 18:02 | CTR_ITS ---
PROCEDURE INFORMATION: Exam: CT Abdomen And Pelvis Without Contrast Exam date and time: 01/15/2025 6:37 PM Age: 79 years old Clinical indication: Other: Enlarging hepatic cyst; Hepatic cyst increased in size compared to prior. History of enlarged prostate. Patient had chest CT performed earlier today and positive for pe. ; Additional info: R/O malignancy, aware of previous contrast given, plz do study TECHNIQUE: Imaging protocol: Computed tomography of the abdomen and pelvis without contrast. Radiation optimization: All CT scans at this facility use at least one of these dose optimization techniques: automated exposure control; mA and/or kV adjustment per patient size (includes targeted exams where dose is matched to clinical indication); or iterative reconstruction. COMPARISON: CT abdomen pelvis wo/w [id number] 06/11/2019 10:17 AM RADIATION DOSE METRICS: Total DLP (mGy-cm): 1988.47 FINDINGS: Lungs: Extensive atelectasis involves both lung bases. Liver: There is a 3.9 cm rounded simple cyst involving the medial segment of the left hepatic lobe. Two separate 8 mm cysts involve the posterior segment of the right hepatic lobe. Gallbladder and biliary ducts: Normal. No calcified stones. No ductal dilation. Pancreas: Normal. No ductal dilation. Spleen: Normal. No splenomegaly. Adrenal glands: Normal. No mass. Kidneys and ureters: There is a 3.3 cm pedunculated cyst arising from the lower pole of the right kidney. Stomach and bowel: Multiple diverticula involve the sigmoid colon. There is no sign of diverticulitis. Appendix: No evidence of appendicitis. Intraperitoneal space: Unremarkable. No free air. No significant fluid collection. Vasculature: Unremarkable. No abdominal aortic aneurysm. Lymph nodes: Unremarkable. No enlarged lymph nodes. Urinary bladder: Unremarkable as visualized. Reproductive: There is severe prostate enlargement with bulging into the lumen of the bladder. Bones/joints: Unremarkable. No acute fracture. Soft tissues: Unremarkable. CT/CT abdomen pelvis wo con [id number] IMPRESSION: 1. The left hepatic cyst has increased in size by 1 cm over the past 6 years. The appearance is not concerning for malignancy. Two other tiny cysts remain stable. 2. Severe prostate enlargement 3. Bibasilar atelectasis 4. A benign renal cyst or cysts have been detected. No further follow-up imaging is required. 5. Sigmoid diverticulosis COMMENTS: Consistent with the [employer]'s Incidental Findings Committee white paper (J Am Kofi Radiol 2018): Any incidental renal lesion less than 1 cm or classified as too small to characterize, or any incidental cystic renal lesion characterized as simple-appearing, is likely benign. No follow-up imaging is recommended for these lesions per consensus recommendations based on imaging criteria.
--- NOTE | 2025-01-15 18:03 | USCV_ITS ---
Adair Vaughan Age: 79 Gender: M : 1945 Exam Date: 01/15/2025 21:43 Ordering Phys: Lisa Miles MD Technologist: ANDREW Exam Location: [facility] [place] Indication: syncope / collapse while mowing lawn Risk Factors: long-term issues with dizziness and previous syncopal events Previous Vascular Surgery: None Right Brachial BP: 149 / 93 Left Brachial BP: / Right Left Velocity (cm/s) Spectral Plaque Velocity (cm/s) Spectral Plaque Syst/Diast Broadening Syst/Diast Broadening 87.60/ 13.70 Min Homo Prox CCA 98.30 / 27.50 Min Homo 64.30/ 17.60 Min Homo Mid CCA 95.60 / 27.50 Min Hetro 55.20/ 16.30 None Hetro Distal CCA 62.30 / 12.80 None Hetro 69.00/ 17.50 Min Hetro Prox ICA 47.70 / 11.60 Min Homo 49.20/ 21.60 Min Homo Mid ICA 83.70 / 21.40 Min Hetro 58.20/ 22.70 Min Homo Distal ICA 84.80 / 26.90 Min Homo 80.20 Min Hetro ECA 55.70 Min Keny 1.30 ICA/CCA 1.40 Antegrade Vertebral Antegrade 32.20/ 13.10 cm/s 35.60/ 11.50 cm/s Bi Subclavian Bi 40.00 48.10 CONCLUSIONS Right ICA stenosis <50%. Mild atheromatous plaque right carotid bulb/ICA. Left ICA stenosis <50%. Mild atheromatous plaque left carotid bulb/ICA. Intimal thickening in the common carotid arteries and internal carotid arteries bilaterally. Normal antegrade Doppler flow noted in the right vertebral artery. Normal antegrade Doppler flow noted in the left vertebral artery. Steve Calderon MD (Electronically Signed) Final Date: 17 Jan 2025 09:09 S
[2025-01-15] MEDS: morphine 4 mg/mL SDV 1 mL 2 MG IVP (18:20)
--- NOTE | 2025-01-15 19:07 | PC.NURSE ---
Shift Summary: Uneventful shift since arrival in ICU. Heparin drip at 19ml.hr. Next ptt is due at 2300. Taken to CT near end of shift, results pending.
[2025-01-15] MEDS: sodium chloride 0.9% 1,000 ML 75 ML IV (19:28)
--- NOTE | 2025-01-15 19:56 | ECG_ITS ---
[facility] Test Date: 2025-01-15 Pat Name: Adair Vaughan Department: Room: ICU11 Gender: Male Girl Friday: : 1945 Requested By: Akbar Kenney Order Number: [id number] Reading MD: KIYA PARKER Measurements Intervals [place] Rate: 65 P: 17 NE: 172 QRS: 12 QRSD: 81 T: 14 QT: 402 QTc: 420 Interpretive Statements SINUS RHYTHM Compared to ECG 01/15/2025 15:34:19 Atrial fibrillation no longer present Electronically Signed On 01-17-2025 23:40:45 CDT by KIYA PARKER [email or web address] [id number]
[2025-01-15 20:35] LABS: Troponin 5 6HR 23.89 ng/L (0-15); Troponin 5 6HR Delta -2.11 ng/L (0-12)
[2025-01-15 22:56] LABS: Basophils % 0.4 %; Eosinophils % 0.1 %; Hematocrit 43.3 % (37-53); Lymphocytes # 1.3 10^3/uL (0.8-4.8); Lymphocytes % 18.4 %; Mean Corpuscular HGB Conc 32.6 g/dL (30-55); Mean Corpuscular Hemoglobin 32.3 pg (27-33); Mean Corpuscular Volume 99.1 fl (82-101); Mean Platelet Volume 10.5 fL (7.4-10.4); Monocytes # 0.6 10^3/uL (0.2-0.9); Monocytes % 8.2 %; Neutrophils # 4.95 10^3/uL (1.8-7.7); Neutrophils % 72.8 %; Nucleated Red Blood Cells % 0 %; Platelet Count 147 10^3/cmm (157-399); Red Blood Count 4.37 10^6/uL (3.85-5.65); White Blood Count 6.81 10^3/uL (3.29-11.43)
[2025-01-16] VITALS (94 sets, daily range): BP systolic 99–167; BP diastolic 70–106; PULSE 57–150; RESP 11–27; TEMP 36.5–36.9; O2SAT 79–96
[2025-01-16 04:27] LABS: ABG PCO2 37.7 mmHg (35-45); ABG PH Result 7.42 (7.35-7.45); Arterial Blood Gas Hematocrit 43.8 % (42-52); Blood Gas Allen Test Pos; Blood Gas Operator Identificat gerca; Blood Gas Sample Site Radial, right; Blood Gas Sample Type Arterial; HCO3 ABG 24.3 mmol/L (22-26); Oxygen Device ROOM AIR; PO2 ABG 56.1 mmHg (80.0-100.0); PO2 FiO2 Ratio Arterial Blood 267
[2025-01-16 06:18] LABS: Basophils % 0.6 %; Hematocrit 42.4 % (37-53); Lymphocytes # 1.3 10^3/uL (0.8-4.8); Mean Corpuscular HGB Conc 32.1 g/dL (30-55); Mean Corpuscular Hemoglobin 32.5 pg (27-33); Mean Corpuscular Volume 101.2 fl (82-101); Mean Platelet Volume 11.4 fL (7.4-10.4); Monocytes # 0.6 10^3/uL (0.2-0.9); Monocytes % 9.4 %; Neutrophils # 4.39 10^3/uL (1.8-7.7); Neutrophils % 69.7 %; Nucleated Red Blood Cells % 0 %; Platelet Count 141 10^3/cmm (157-399); Red Blood Count 4.19 10^6/uL (3.85-5.65); Red Cell Distribution Width 13.8 % (12.1-15.1)
[2025-01-16 06:36] LABS: Alanine Aminotransferase 9 U/L (0-41); Albumin Level 2.9 g/dL (3.5-5.2); Alkaline Phosphatase 150 U/L (40-130); Anion Gap 13.3 (5-19); Aspartate Amino Transferase 13 U/L (0-40); Blood Urea Nitrogen 16 mg/dL (8-23); Calcium 8.1 mg/dL (8.5-10.5); Carbon Dioxide 25 mmol/L (22-29); Chloride 103 mmol/L (98-107); Creatinine Clr Calc Pharmacy 52.1515; Globulin 3.1 g/dL (1.3-4.6); Glucose 98 mg/dL (65-115); Osmolality Calculated 285 mOsm/kg (285-295); Potassium 4.3 mmol/L (3.5-5.1); Sodium 137 mmol/L (136-145); Total Bilirubin 0.8 mg/dL (0.15-1.2)
[2025-01-16 06:45] LABS: Magnesium 2.1 mg/dL (1.7-2.3)
[2025-01-16 07:35] LABS: Bilirubin Urine Negative (Negative); Blood Urine 1+ (Negative); Glucose Urine UA Negative (Normal); Ketones Urine Trace (Negative); Leukocyte Esterase Urine Negative (Negative); Nitrate Urine Negative (Negative); Protein Urine 1+ (Negative); Urine Appearance Clear (CLEAR); Urine Color Yellow (Yellow); pH Urine 5.5 (5-7)
[2025-01-16 07:38] LABS: Add Urine Microscopic? YES; Bacteria Urine None Seen /hpf; Hyaline Casts Urine 1.21 /lpf; RBC Urine 0-2 /hpf (0-2); Squamous Epithelial Cell Urine 0-5 /hpf (0-5)
[2025-01-16 07:41] LABS: Add Urine Culture? No; Specific Gravity, Urine 1.044 (1.005-1.030)
[2025-01-16] MEDS: memantine 5 mg tablet 10 MG PO ×2 (08:51→15:50)
[2025-01-16] MEDS: pantoprazole 40 mg SDV IVP (08:52)
--- NOTE | 2025-01-16 10:17 | CT_ITS ---
WS: [id number] CT LEFT SHOULDER, NONCONTRAST HISTORY: clavicle fracture, assess joint fracture Technique: All CT scans at [facility] use at least one of these dose optimization techniques: automated exposure control; mA and/or kV adjustment per patient size (includes targeted exams where dose is matched to clinical indication); or iterative reconstruction. DLP: 259.34 mGy.cm COMPARISON: 01/15/[address] No segmental fracture involving the LEFT clavicle. Fracture in the proximal clavicle is not displaced. There is a comminuted fracture of the distal clavicle with mild displacement. AC joint is normal. No acromial fracture. Humeral head is normally seated within the glenoid. No glenoid fracture. No scapular fracture identified. Several left-sided rib fractures identified on today's exam. Less motion artifact making these fractures slightly more conspicuous. Fractures noted involving the lateral fourth rib and fifth ribs. The fifth rib is a minimal buckle fracture. Highly suspicious the sixth rib is probably also fractured. Ad ditional nondisplaced fracture involving the first rib. No underlying pneumothorax. LEFT lower lobe compressive atelectasis. Soft tissue contusion surrounding the LEFT shoulder with areas of edema and hemorrhage. CT/CT shoulder LT wo con* [id number] IMPRESSION: 1. Segmental clavicular fracture. Distal segmental component of the fracture i s comminuted. 2. No shoulder dislocation. 3. Several left-sided rib fractures are identified. These are nondisplaced and difficult to visualize. There are fractures involving the first, fourth, fifth and probably the sixth rib. 4. Soft tissue contusion with hematoma and edema surrounding the LEFT shoulder . 5. LEFT lower lobe compressive atelectasis.
[2025-01-16 12:51] LABS: Partial Thromboplastin Time 114.7 SECONDS (23.9-36.7)
--- NOTE | 2025-01-16 13:40 | PC.NURSE ---
message left with ortho to determine the kind of brace/sling needed for Fx clavicle per PT
--- NOTE | 2025-01-16 13:50 | P.PN_ITS ---
Subjective 2 Subjective: Seen today resting comfortably in bed chewing tobacco at this time. CT abdomen pelvis negative for malignancy. Denies any active complaints. Currently on heparin drip Vitals/I&O/Wt Last Vital Signs Temp 98.6 F 01/15/25 20:10 Pulse 61 01/16/25 12:00 Resp 14 01/16/25 12:00 BP 115/70 01/16/25 12:00 Pulse Ox 92 01/16/25 12:00 O2 Del Method Room Air 01/15/25 17:25 01/15/25 01/16/25 01/16/25 22:59 06:59 14:59 Intake Total 10.775 / 310.775 130.15 / 440.925 570.8 / 570.8 Output Total 100 / 100 300 / 400 Balance -89.225 / 210.775 -169.85 / 40.925 570.8 / 570.8 Weight last 48 hrs Weight 69.5 kg Weight 68.039 kg Physical Exam 2 Narrative: General: Alert oriented x3, seen laying in bed chewing tobacco at this time. HEENT: Normocephalic, atraumatic, EOMI, breathing room air Cardio: Regular rate rhythm, normal S1-S2, no gross murmurs noted. Respiratory: Good bilateral air entry, no wheezes no rhonchi appreciated GI: Abdomen soft, nontender, nondistended, bowel sounds + Behavior: Appropriate and cooperative Extremities: No edema bilateral lower extremities, both calves symmetrical Data 01/16/25 06:02 01/16/25 06:02 A&P Assessment and plan (1) Pulmonary embolism: (2) Fx clavicle shaft-closed: (3) Syncope: (4) Collapse: (5) DVT (deep venous thrombosis): (6) Hematoma: Plan #Bilateral pulmonary emboli #Right leg DVT #Left clavicular fracture with adjacent hematoma #Syncope, collapse #History of basal ganglia lacunar infarct/stroke #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 Possible vasovagal? ? He does have evidence of DVT and bilateral pulmonary embolism. Rule out malignancy ? Check CT chest abdomen pelvis without contrast. ? Does have a creatinine of 1.3. Baseline unknown. I will hold off on giving contrast at this time ? He will need hematology referral at discharge ? Placed on heparin drip and anticoagulate patient. ? Plan to discharge on Eliquis. However will discuss with patient regarding patient's syncope and collapse episodes as there may be risk of brain bleed. Will discuss with him regarding benefits and risks before discharging on Eliquis ? PT OT ? Placed on cardiac telemetry. Will evaluate for arrhythmias. Check cardiac echo ? Recommend 30-day event monitor to rule out cardiac cause of syncope ? Check orthostatic vitals in a.m. ? Continue normal saline 75 cc/h ? Check lipid profile, TSH, hemoglobin A1c - Consult orthopedic surgery, await recommendations - check cbc at 10 pm Full Code DVT PPX: pt on heparin drip 01/16/2025 Patient doing tobacco at this time feels well. Awaiting to work with physical therapy. Awaiting orthopedic surgery consult. Will place left shoulder in a sling. CT shoulder ordered to rule out joint fracture. Continue heparin drip at this time. Will move to [facility] today. Transition to Eliquis starting tomorrow. Patient does dip down to 88 on room air. He will need home oxygen evaluation at discharge. CT abdomen pelvis negative for gross malignancy, CT chest negative for gross malignancy as well. He will need hematological hypercoagulable workup as an outpatient. Will require hematology referral at discharge Will check orthostatic vitals today Check PT OT CT head did show previous bilateral basal ganglia lacunar infarcts. This will cause lack of coordination and balance and possibly the reason for his falls? He will need event monitor at discharge for 30 day to rule out underlying cardiac arrhythmias. Awaiting echo carotid Dopplers at this time. Tentative plan to discharge tomorrow if remains stable. PDMP PDMP Reviewed: Not Reviewed Attestations 2 Medical Necessity Statement*: Bilateral pulmonary emboli on heparin drip at this time. Awaiting further workup. Diagnoses Pulmonary embolism I26.94 Pulmonary embolism type: multiple subsegmental (without acute cor pulmonale) Fx clavicle shaft-closed S42.025A Encounter type: initial encounter Fracture alignment: nondisplaced Laterality: left Syncope R55 Syncope type: unspecified Collapse R55 DVT (deep venous thrombosis) I82.409 Hematoma T14.8XXA
--- NOTE | 2025-01-16 13:51 | PC.OT ---
OT evaluation attempted with nursing reporting pt is getting ready to move to [facility] and waiting ortho clinic to name type of sling to utilize for clavicle fx; will attempt again at later time.
--- NOTE | 2025-01-16 14:31 | PM.CONSULT ---
Providers/Reason For Consult Consulting Physician/Specialty*: Mohamud Rock MD Orthopedic surgery Reason for Consult*: Fractured left clavicle Attending Physician: Lisa Miles MD Primary Care Provider: Daniel Dozier History of Present Illness History of Present Illness Adair Vaughan is a 79 year old male who was admitted through the ED after his son found him in the yard. It appears that the patient had a syncopal episode and fell in his yard. It sounds as if there have been more than 1 fall. At the time of admission the he was identified to have a distal comminuted fracture of his left clavicle. However he was also found to have a pulmonary embolus as well as several fractured ribs. Patient is admitted through to the hospital through the hospitalist service. Orthopedic consultation was obtained for the fractured clavicle. Review of Systems Const: Denies: fever(s) or chills Card: Denies: chest pain Resp: Denies: dyspnea GI: Denies: abdominal pain : Denies: dysuria, urinary frequency or urinary urgency Musc: Reports: joint pain; Denies: neck pain or back pain Skin/Breast: Denies: rash Medications/Allergies Home Medications ?Medication ?Instructions ?Recorded ?Confirmed ?Last Taken ?Type acetaminophen 325 mg tablet 650 mg PO QID PRN Pain 01/15/25 01/15/25 01/14/25 History (Tylenol) donepezil 10 mg tablet 10 mg PO QPM 01/15/25 01/15/25 01/14/25 20:00 History memantine 10 mg tablet 10 mg PO BID 01/15/25 01/15/25 01/14/25 History Allergies Allergy/AdvReac Type Severity Reaction Status Date / Time No Known Allergies Allergy Unverified 02/20/23 15:02 Current Medications Generic Name Dose Route Start Last Admin Trade Name Freq PRN Reason Stop Dose Admin Donepezil HCl 10 mg 01/15/25 18:00 01/15/25 17:48 Donepezil 5 Mg Tablet PO 10 mg QPM TROY Administration Heparin Sodium/Sodium Chloride 25,000 unit in 500 mls @ 0 mls/hr 01/15/25 16:00 01/16/25 13:24 Heparin Drip IV 11.02 unit/kg/hr CONT TROY 15 mls/hr Protocol Titration Per Protocol Memantine 10 mg 01/15/25 18:00 01/16/25 08:51 Memantine 5 Mg Tablet PO 10 mg BID TROY Administration Morphine Sulfate 2 mg 01/15/25 17:31 01/15/25 18:20 Morphine 4 Mg/Ml Sdv 1 Ml IVP 2 mg Q4H PRN Administration SEVERE PAIN Pantoprazole Sodium 40 mg 01/16/25 09:00 01/16/25 08:52 Pantoprazole 40 Mg Sdv IVP 40 mg DAILY TROY Administration Vitals/I&O/Wt Last Vital Signs Temp 98.6 F 01/15/25 20:10 Pulse 65 01/16/25 14:17 Resp 14 01/16/25 12:00 BP 115/70 01/16/25 12:00 Pulse Ox 92 01/16/25 12:00 O2 Del Method Room Air 01/15/25 17:25 01/15/25 01/16/25 01/16/25 22:59 06:59 14:59 Intake Total 10.775 / 310.775 130.15 / 440.925 570.8 / 570.8 Output Total 100 / 100 300 / 400 Balance -89.225 / 210.775 -169.85 / 40.925 570.8 / 570.8 Weight last 48 hrs Weight 153 lb 3.54 oz Weight 150 lb Physical Exam Narrative: On exam today patient is resting in bed does not show any signs of distress. He does hold his left arm still. He has some swelling over the superior aspect of his left shoulder/AC joint. He is tender palpation area. Does not tolerate much movement with the left arm. He is neurovascular intact distally on this arm though. Data 01/16/25 06:02 01/16/25 06:02 Other data: X-ray of his clavicle demonstrates fracture distal clavicle with no separation of the AC joint. No signs of penetration through skin or near penetration. CT scan was reviewed of the shoulder also demonstrating comminuted fracture of the distal left clavicle with no skin compromise. No disruption of the AC joint. A&P Assessment and plan (1) Fx clavicle shaft-closed: Patient has comminuted left distal clavicle fracture. Well aligned. No skin compromise Plan Plan at this time is just to treat this conservatively with a shoulder sling. He should remain immobilized in a sling for at least 4 weeks. He will need to follow-up in the orthopedic clinics for repeat x-rays and advancement of his activities as his clavicle heals. Typically would see him 2 weeks after initial treatment to obtain a follow-up x-ray. PDMP PDMP Reviewed: Not Reviewed Consult Attestations Medical Necessity Statement: Patient in need of pain control as well as treatment for his pulmonary embolus Coding Level of Care Code Acute Code for Chg Fwd Diagnoses Fx clavicle shaft-closed S42.025A Encounter type: initial encounter Fracture alignment: nondisplaced Laterality: left
[2025-01-16] MEDS: amlodipine 5 mg Tablet PO (15:50)
[2025-01-16] MEDS: donepezil 5 MG Tablet 10 MG PO (15:50)
[2025-01-16] MEDS: heparin drip 25,000 UNIT/500 ML PREMIX 15 UNIT IV (15:52)
--- NOTE | 2025-01-16 19:32 | ECG_ITS ---
[facility] Test Date: 2025-01-16 Pat Name: Adair Vaughan Department: Room: 104 Gender: Male Medical Coding Technician: : 1945 Requested By: Lisa Miles Order Number: [id number] Reading MD: KIYA PARKER Measurements Intervals [place] Rate: 147 P: 0 MN: 0 QRS: 16 QRSD: 76 T: -30 QT: 215 QTc: 337 Interpretive Statements SUPRAVENTRICULAR TACHYCARDIA NONSPECIFIC ST & T-WAVE ABNORMALITY ABNORMAL RHYTHM ECG Compared to ECG 01/15/2025 20:44:58 T-wave abnormality now present Sinus rhythm no longer present Electronically Signed On 01-17-2025 23:30:51 CDT by KIYA PARKER [id number]
[2025-01-16 19:38] LABS: Partial Thromboplastin Time 58.8 SECONDS (23.9-36.7)
--- NOTE | 2025-01-16 20:05 | ECG_ITS ---
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1945 Requested By: Karolina Carias Order Number: [id number] Daniel MD: KIYA PARKER Measurements Intervals [place] Rate: 112 P: 0 NE: 0 QRS: -11 QRSD: 84 T: -31 QT: 288 QTc: 394 Interpretive Statements ATRIAL FIBRILLATION WITH RAPID VENTRICULAR RESPONSE WITH ABERRANT CONDUCTION OR VENTRICULAR PREMATURE COMPLEXES MINIMAL VOLTAGE CRITERIA FOR LVH, CONSIDER NORMAL VARIANT [MEETS CRITERIA IN ONE OF: R(aVL), S(V1), R(V5), R(V5/V6)+S(V1)] MODERATE ST DEPRESSION [0.05+ mV ST DEPRESSION] Compared to ECG 01/16/2025 19:33:19 Ventricular premature complex(es) now present Aberrant conduction of supraventricular beat(s) now present ST (T wave) deviation now present Supraventricular tachycardia no longer present T-wave abnormality no longer present Electronically Signed On 01-17-2025 23:30:41 CDT by KIYA PARKER [email or web address]
--- NOTE | 2025-01-16 20:07 | PM.MISC ---
Miscellaneous Note Note: I was just notified by the nurse, the patient has been going into SVT with rates of 140-160, despite her encouraging the patient to attempt Valsalva maneuver. The nurse ordered an EKG, which does suggest SVT, with HR of 147. I went to the bedside to see the patient, stated multiple times, I feel fine, despite my asking whether he felt dizzy, light headed, CP, or palpitations, nausea. He states that his only complaint is pain in his L. shoulder, which is in a sling. While at Bedside, repeat EKG and the EKG monitors showed the patient going into Afib w/ RVR, then NSR, then converting back into SVT. BP was 106/82. On exam he was tachycardic w/ no m/r/g or clicks.
[2025-01-16] MEDS: dilTIAZem 5 mg/mL SDV 5 mL 15 MG IVP (20:21)
--- NOTE | 2025-01-16 20:30 | PC.NURSE ---
Patient heart rate sustaining in 140-160 BP 106/82, SpO2 91% on RA. Patient denies any SOB, CP, or dizziness at this time. EKG obtained. Dr. Bhakta called and received orders to obtained another EKG as patient HR jumped up to 170's. MD to place orders for diltiazem. Dr. Bhakta at bedside examing patient, several EKG obtained.
[2025-01-16] MEDS: trazodone 50 mg Tablet PO (21:52)
[2025-01-16] MEDS: dilTIAZem 60 mg Tablet PO (21:52)
[2025-01-16] MEDS: sodium chloride 0.9% 1,000 ML 500 ML IV (21:53)
[2025-01-17] VITALS (11 sets, daily range): BP systolic 113–154; BP diastolic 76–106; PULSE 66–81; RESP 15–20; TEMP 36.5–37; O2SAT 90–96
[2025-01-17] MEDS: morphine 4 mg/mL SDV 1 mL 2 MG IVP ×2 (00:04→22:17)
--- NOTE | 2025-01-17 00:29 | PC.NURSE ---
2105- Let Dr. Carias know that after IVP of 15 mg diltiazem HR is down to 70-80's NSR still with PAC's and PVC's, BP is 167/93. When patient attempts to get up his HR does jump back into 150's. Also notified MD that he has slighthand tremors and feels clammy. MD to place orders and also was told to attempt to keep him bedrest until he has received his PO diltiazem. Obtaining VS [id number] for a couple hours and moving patient closer to nurses station as patient is having more confusion/attempting to get out of bed.
--- NOTE | 2025-01-17 01:03 | PC.NURSE ---
Patient attempted to get out of bed stating I'm going home, my son needs to know where I am! . Patient reoriented to where he is at and the situation. Patient is shocked that his son brought him to the hospital but was able to get back in bed. Patient is only oriented to self at this moment Patient is complaining of voiding frequently and mentions that it haro a little. Notified Dr. Bhakta about situation, MD to place orders for UA.
[2025-01-17 02:45] LABS: Bilirubin Urine Negative (Negative); Blood Urine 1+ (Negative); Glucose Urine UA Negative (Normal); Ketones Urine Negative (Negative); Leukocyte Esterase Urine Negative (Negative); Nitrate Urine Negative (Negative); Protein Urine Negative (Negative); Urine Appearance Clear (CLEAR); Urine Color Yellow (Yellow)
[2025-01-17 02:50] LABS: Add Urine Microscopic? YES; Bacteria Urine None Seen /hpf; Hyaline Casts Urine 4.52 /lpf; RBC Urine 0-2 /hpf (0-2); Squamous Epithelial Cell Urine 0-5 /hpf (0-5); WBC Urine 0-5 /hpf (0-5)
[2025-01-17 03:03] LABS: Basophils % 0.6 %; Hematocrit 41.5 % (37-53); Lymphocytes # 0.9 10^3/uL (0.8-4.8); Lymphocytes % 13.9 %; Mean Corpuscular HGB Conc 32.8 g/dL (30-55); Mean Corpuscular Hemoglobin 32.2 pg (27-33); Mean Corpuscular Volume 98.3 fl (82-101); Mean Platelet Volume 11.6 fL (7.4-10.4); Monocytes # 0.6 10^3/uL (0.2-0.9); Monocytes % 8.8 %; Neutrophils # 4.84 10^3/uL (1.8-7.7); Neutrophils % 76.4 %; Nucleated Red Blood Cells % 0 %; Platelet Count 151 10^3/cmm (157-399); Red Blood Count 4.22 10^6/uL (3.85-5.65); Red Cell Distribution Width 13.7 % (12.1-15.1); White Blood Count 6.34 10^3/uL (3.29-11.43)
[2025-01-17] MEDS: dilTIAZem 60 mg Tablet PO (03:14)
[2025-01-17 03:20] LABS: Partial Thromboplastin Time 67.8 SECONDS (23.9-36.7)
[2025-01-17 03:28] LABS: Alanine Aminotransferase 10 U/L (0-41); Albumin Level 2.9 g/dL (3.5-5.2); Alkaline Phosphatase 152 U/L (40-130); Anion Gap 15.1 (5-19); Aspartate Amino Transferase 14 U/L (0-40); Blood Urea Nitrogen 14 mg/dL (8-23); Calcium 8.2 mg/dL (8.5-10.5); Carbon Dioxide 24 mmol/L (22-29); Chloride 103 mmol/L (98-107); Creatinine Clr Calc Pharmacy 52.1515; Globulin 3.2 g/dL (1.3-4.6); Glucose 134 mg/dL (65-115); Osmolality Calculated 288 mOsm/kg (285-295); Potassium 4.1 mmol/L (3.5-5.1); Sodium 138 mmol/L (136-145); Total Bilirubin 0.7 mg/dL (0.15-1.2); Total Protein 6.1 g/dL (6.6-8.7)
--- NOTE | 2025-01-17 06:35 | P.PN_ITS ---
Subjective 2 Subjective: Overnight events noted. EKG reviewed. Patient was started on Cardizem 60 every 6 Nursing staff reported that patient attempted to get out of bed and was somewhat confused overnight. This morning when seen at the bedside patient states he does not know what happened overnight as he did feel confused. He says he thought he was at home however acknowledges he knows he is in the hospital now. He feels fine. I discussed with him with the possibility of going home today and he states he will have to call my son for that. His mental status is back to his baseline. He is currently in sinus rhythm. Telemetry reviewed, no events recorded. Reviewed overnight EKGs. Vitals/I&O/Wt Last Vital Signs Temp 97.8 F 01/17/25 08:00 Pulse 76 01/17/25 08:00 Resp 18 01/17/25 08:00 BP 125/76 01/17/25 08:00 Pulse Ox 90 01/17/25 08:00 O2 Del Method Room Air 01/17/25 08:00 01/16/25 01/17/25 01/17/25 22:59 06:59 14:59 Intake Total 1816.5 / 2387.3 1202.5 / 3589.8 Output Total 800 / 800 300 / 1100 Balance 1016.5 / 1587.3 902.5 / 2489.8 Weight last 48 hrs Weight 69.944 kg Weight 69.5 kg Weight 68.039 kg Physical Exam 2 Narrative: General: Alert oriented x3 sitting up in bed appearing comfortable at this time. HEENT: Normocephalic, atraumatic, EOMI, breathing room air Cardio: Regular rate rhythm, normal S1-S2, no gross murmurs noted., Currently in sinus rhythm. Respiratory: Good bilateral air entry, no wheezes no rhonchi appreciated GI: Abdomen soft, nontender, nondistended, bowel sounds + Behavior: Appropriate and cooperative Extremities: No edema bilateral lower extremities, both calves symmetrical Data 01/17/25 02:32 01/17/25 02:32 A&P Assessment and plan (1) Pulmonary embolism: (2) Fx clavicle shaft-closed: (3) Syncope: (4) Collapse: (5) DVT (deep venous thrombosis): (6) Hematoma: Plan #Bilateral pulmonary emboli #Right leg DVT #Left clavicular fracture with adjacent hematoma #Syncope, collapse #History of basal ganglia lacunar infarct/stroke #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 Possible vasovagal? ? He does have evidence of DVT and bilateral pulmonary embolism. Rule out malignancy ? Check CT chest abdomen pelvis without contrast. ? Does have a creatinine of 1.3. Baseline unknown. I will hold off on giving contrast at this time ? He will need hematology referral at discharge ? Placed on heparin drip and anticoagulate patient. ? Plan to discharge on Eliquis. However will discuss with patient regarding patient's syncope and collapse episodes as there may be risk of brain bleed. Will discuss with him regarding benefits and risks before discharging on Eliquis ? PT OT ? Placed on cardiac telemetry. Will evaluate for arrhythmias. Check cardiac echo ? Recommend 30-day event monitor to rule out cardiac cause of syncope ? Check orthostatic vitals in a.m. ? Continue normal saline 75 cc/h ? Check lipid profile, TSH, hemoglobin A1c - Consult orthopedic surgery, await recommendations - check cbc at 10 pm Full Code DVT PPX: pt on heparin drip 01/16/2025 Patient doing tobacco at this time feels well. Awaiting to work with physical therapy. Awaiting orthopedic surgery consult. Will place left shoulder in a sling. CT shoulder ordered to rule out joint fracture. Continue heparin drip at this time. Will move to [facility] today. Transition to Eliquis starting tomorrow. Patient does dip down to 88 on room air. He will need home oxygen evaluation at discharge. CT abdomen pelvis negative for gross malignancy, CT chest negative for gross malignancy as well. He will need hematological hypercoagulable workup as an outpatient. Will require hematology referral at discharge Will check orthostatic vitals today Check PT OT CT head did show previous bilateral basal ganglia lacunar infarcts. This will cause lack of coordination and balance and possibly the reason for his falls? He will need event monitor at discharge for 30 day to rule out underlying cardiac arrhythmias. Awaiting echo carotid Dopplers at this time. Tentative plan to discharge tomorrow if remains stable. 01/17/2025 Cardiac echo shows normal EF 55 to 60% with grade 1 diastolic dysfunction mild mitral regurgitation. Carotid Dopplers are pending CT abdomen pelvis negative for gross malignancy, CT chest negative for gross malignancy as well. CT head did show previous bilateral basal ganglia lacunar infarcts. Overnight with patient's mild confusion he probably had sundowners. He does have early dementia as per patient's son on admission. Mental status is now back to baseline. Will check orthostatic vitals today. Stop heparin drip Transition to Eliquis 10 twice daily x 7 days and then 5 twice daily thereafter. Will need hematology consultation at discharge Will order event monitor for 30 days to rule out underlying cardiac arrhythmias. I will stop Cardizem every 6 at this time. I am not convinced his rhythm was A- fib overnight. I do acknowledge PACs and PVCs. Will start on 25 metoprolol twice daily going forward and set up patient with event monitor to follow-up with cardiology as an outpatient. Once carotid Dopplers have been reviewed I may go ahead discharge patient home with outpatient follow-ups as previously discussed with patient and his son. We will aim for discharge closer to the afternoon as I would have to monitor him on telemetry. PDMP PDMP Reviewed: Not Reviewed Attestations 2 Medical Necessity Statement*: Possible tentative discharge later on today if patient remains stable. Diagnoses Pulmonary embolism I26.94 Pulmonary embolism type: multiple subsegmental (without acute cor pulmonale) Fx clavicle shaft-closed S42.025A Encounter type: initial encounter Fracture alignment: nondisplaced Laterality: left Syncope R55 Syncope type: unspecified Collapse R55 DVT (deep venous thrombosis) I82.409 Hematoma T14.8XXA
--- NOTE | 2025-01-17 07:08 | PC.NURSE ---
Dr. Miles stopped this nurse in the golden requesting to hold cardizem and she will place orders for metoprolol.
[2025-01-17] MEDS: pantoprazole 40 mg SDV IVP (08:30)
[2025-01-17] MEDS: apixaban 5 mg Tablet 10 MG PO ×2 (08:31→20:46)
[2025-01-17] MEDS: metoprolol tartrate 25 mg Tablet PO ×2 (08:31→20:46)
[2025-01-17] MEDS: memantine 5 mg tablet 10 MG PO ×2 (08:32→17:39)
--- NOTE | 2025-01-17 09:16 | PM.DCS ---
Discharge Providers Date of Admission: 01/15/25 16:42 Date of Discharge: January 17, 2025 Attending Provider at Admission: Lisa Miles MD Attending Provider at Discharge: Lisa Miles MD Primary Care Provider: Daniel Dozier Diagnoses at Discharge Discharge Diagnosis (1) Pulmonary embolism: Status: Acute Qualifiers: Pulmonary embolism type: multiple subsegmental (without acute cor pulmonale) Qualified Code(s): I26.94 - Multiple subsegmental thrombotic pulmonary emboli without acute cor pulmonale (2) Fx clavicle shaft-closed: Status: Acute Qualifiers: Encounter type: initial encounter Fracture alignment: nondisplaced Laterality: left Qualified Code(s): S42.025A - Nondisplaced fracture of shaft of left clavicle, initial encounter for closed fracture (3) Syncope: Status: Acute Qualifiers: Syncope type: unspecified Qualified Code(s): R55 - Syncope and collapse (4) Collapse: Status: Acute (5) DVT (deep venous thrombosis): Status: Acute (6) Hematoma: Status: Acute Reason for Visit Reason for Visit: Syncope Discharge Data Studies Completed and Pending Completed Studies During Hospitalization Category Date Time Status CT abdomen pelvis wo con 98711 Stat Cat Scan 01/15/25 18:[address] cervical spin wo con* [id number] Stat Cat Scan 01/15/25 14:[address] chest w con* [id number] Stat Cat Scan 01/15/25 14:[address] head wo con* [id number] Stat Cat Scan 01/15/25 14:[address] shoulder LT wo con* [id number] Stat Cat Scan 01/16/25 10:17 [place] [id number] Stat Exams 01/15/25 14:44 Completed XR shoulder LT min 2V* [id number] Stat Exams 01/15/25 14:44 Completed CV carotid duplex BI* [id number] Urgent Ultrasound 01/15/25 18:03 Completed US echo complete [CV. echo complete* [id number]] Stat Ultrasound 01/15/25 15:57 Completed US venous duplex lower extremity bilat [CV venous Ultrasound 01/15/25 15:57 [place] [id number]] Routine Pending at discharge Category Date Time Status XR shoulder RT min 2V* [id number] Stat Exams 01/15/25 14:38 Taken PTT [Partial Thromboplastin Time] Timed Lab 01/17/25 09:20 Ordered Platelet Count Q2D Lab 01/19/25 04:00 Ordered Radiology Impressions Cervical Spine CT 01/15/25 14:38 IMPRESSION: 1. No acute cervical spine fracture. 2. Extensive facet joint arthropathy greatest on the LEFT. No high-grade central stenosis. Chest CT 01/15/25 14:38 IMPRESSION: 1. Bilateral pulmonary emboli. Largest burden in the proximal RIGHT lower lobe pulmonary artery. Additional more peripheral segmental and subsegmental emboli. 2. No pneumothorax. 3. No pulmonary contusion. 4. LEFT clavicular fracture. Fractures in both the medial and lateral clavicle with adjacent hematoma. 5. No rib fracture identified. There is motion artifact from breathing obscuring detail. Nondisplaced rib or clavicle fracture would be difficult to visualize. 6. Moderate cardiomegaly. 7. Intact thoracic aorta. 8. Hepatic cysts. Notified Akbar Magana DO at 01/15/2025 3:[address] 01/15/25 14:38 IMPRESSION: 1. No acute intracranial hemorrhage or edema. 2. Moderate cerebral and cerebellar volume loss and small vessel disease. 3. Bilateral lacunar infarcts in the basal ganglia. 4. RIGHT maxillary sinusitis. Chronic inspissated material fills the RIGHT maxillary sinus. Clavicle X-Ray 01/15/25 14:44 IMPRESSION: 1. Nondisplaced fractures of the distal and medial LEFT clavicle. AC joint separation. Shoulder X-Ray 01/15/25 14:44 IMPRESSION: 1. Comminuted nondisplaced distal clavicle fracture. There may be low-grade AC joint separation also. Venous Duplex 01/15/25 15:57 IMPRESSION: There is evidence of DVT involving the right superficial femoral vein Abdomen/Pelvis CT 01/15/25 18:02 IMPRESSION: 1. The left hepatic cyst has increased in size by 1 cm over the past 6 years. The appearance is not concerning for malignancy. Two other tiny cysts remain stable. 2. Severe prostate enlargement 3. Bibasilar atelectasis 4. A benign renal cyst or cysts have been detected. No further follow-up imaging is required. 5. Sigmoid diverticulosis COMMENTS: Consistent with the [employer]'s Incidental Findings Committee white paper (J Am Kofi Radiol 2018): Any incidental renal lesion less than 1 cm or classified as too small to characterize, or any incidental cystic renal lesion characterized as simple-appearing, is likely benign. No follow-up imaging is recommended for these lesions per consensus recommendations based on imaging criteria. Shoulder CT 01/16/25 10:17 IMPRESSION: 1. Segmental clavicular fracture. Distal segmental component of the fracture is comminuted. 2. No shoulder dislocation. 3. Several left-sided rib fractures are identified. These are nondisplaced and difficult to visualize. There are fractures involving the first, fourth, fifth and probably the sixth rib. 4. Soft tissue contusion with hematoma and edema surrounding the LEFT shoulder. 5. LEFT lower lobe compressive atelectasis. Laboratory Results WBC 6.34 10^3/uL (3.29-11.43) 01/17/25 02:32 RBC 4.22 10^6/uL (3.85-5.65) 01/17/25 02:32 Hgb 13.60 g/dL (11.27-16.99) 01/17/25 02:32 Hct 41.5 % (37-53) 01/17/25 02:32 MCV 98.3 fl (82-101) 01/17/25 02:32 MCH 32.2 pg (27-33) 01/17/25 02:32 MCHC 32.8 g/dL (30-55) 01/17/25 02:32 RDW 13.7 % (12.1-15.1) 01/17/25 02:32 Plt Count 151 10^3/cmm (157-399) L 01/17/25 02:32 MPV 11.6 fL (7.4-10.4) H 01/17/25 02:32 Neut % (Auto) 76.4 % 01/17/25 02:32 Lymph % (Auto) 13.9 % 01/17/25 02:32 [place] % (Auto) 8.8 % 01/17/25 02:32 Eos % (Auto) 0.0 % 01/17/25 02:32 Baso % (Auto) 0.6 % 01/17/25 02:32 Neut # (Auto) 4.84 10^3/uL (1.8-7.7) 01/17/25 02:32 Lymph # (Auto) 0.9 10^3/uL (0.8-4.8) 01/17/25 02:32 [place] # (Auto) 0.6 10^3/uL (0.2-0.9) 01/17/25 02:32 Eos # (Auto) 0.0 10^3/uL (0.0-0.8) 01/17/25 02:32 Baso # (Auto) 0.0 10^3/uL (0.0-0.1) 01/17/25 02:32 Nucleated RBC % (auto) 0 % 01/17/25 02:32 Nucleated RBCs # 0.0 /100WBC 01/17/25 02:32 APTT 67.8 SECONDS (23.9-36.7) H 01/17/25 02:32 Specimen Type Arterial 01/16/25 04:15 Sample Site Radial, right 01/16/25 04:15 ABG pH 7.42 (7.35-7.45) 01/16/25 04:15 ABG pCO2 37.7 mmHg (35-45) 01/16/25 04:15 ABG pO2 56.1 mmHg (80.0-100.0) L 01/16/25 04:15 ABG PO2/FiO2 Ratio 267 01/16/25 04:15 ABG HCO3 24.3 mmol/L (22-26) 01/16/25 04:15 ABG Base Excess 0.0 mmol/L (-2.0-2.0) 01/16/25 04:15 [place] Test Pos 01/16/25 04:15 Hematocrit 43.8 % (42-52) 01/16/25 04:15 O2 Delivery Device Room air 01/16/25 04:15 FiO2 21.0 % 01/16/25 04:15 Dice Table Operator ID [email or web address] 01/16/25 04:15 Sodium 138 mmol/L (136-145) 01/17/25 02:32 Potassium 4.1 mmol/L (3.5-5.1) 01/17/25 02:32 Chloride 103 mmol/L (98-107) 01/17/25 02:32 Carbon Dioxide 24 mmol/L (22-29) 01/17/25 02:32 Anion Gap 15.1 (5-19) 01/17/25 02:32 BUN 14 mg/dL (8-23) 01/17/25 02:32 Creatinine 1.1 mg/dL (0.7-1.2) 01/17/25 02:32 GFR Calculation Not Reportable 01/17/25 02:32 Glucose 134 mg/dL (65-115) H 01/17/25 02:32 Calculated Osmolality 288 mOsm/kg (285-295) 01/17/25 02:32 Calcium 8.2 mg/dL (8.5-10.5) L 01/17/25 02:32 Magnesium 2.0 mg/dL (1.7-2.3) 01/17/25 02:32 Total Bilirubin 0.7 mg/dL (0.15-1.2) 01/17/25 02:32 AST 14 U/L (0-40) 01/17/25 02:32 ALT 10 U/L (0-41) 01/17/25 02:32 Alkaline Phosphatase 152 U/L (40-130) H 01/17/25 02:32 Troponin T Baseline 26 ng/L (0-15) H 01/15/25 14:10 Troponin T 120 Minute 24.31 ng/L (0-15) H 01/15/25 15:53 Delta Troponin T -1.69 ABS# (0-10) L 01/15/25 15:53 Troponin T Hi Sens 6Hr 23.89 ng/L (0-15) H 01/15/25 19:43 Troponin T Hi Sens 6Hr Delta -2.11 ng/L (0-12) L 01/15/25 19:43 NT-Pro-B Natriuret Pep 1545 pg/mL (0-450) H 01/15/25 16:01 Total Protein 6.1 g/dL (6.6-8.7) L 01/17/25 02:32 Albumin 2.9 g/dL (3.5-5.2) L 01/17/25 02:32 Globulin 3.2 g/dL (1.3-4.6) 01/17/25 02:32 Urine Color Yellow (Yellow) 01/17/25 02:15 Urine Appearance Clear (CLEAR) 01/17/25 02:15 Urine pH 5.0 (5-7) 01/17/25 02:15 Ur Specific [place] 1.010 (1.005-1.030) 01/17/25 02:15 Urine Protein Negative (Negative) 01/17/25 02:15 Urine Glucose (UA) Negative (Normal) 01/17/25 02:15 Urine Ketones Negative (Negative) 01/17/25 02:15 Urine Blood 1+ (Negative) A 01/17/25 02:15 Urine Nitrate Negative (Negative) 01/17/25 02:15 Urine Bilirubin Negative (Negative) 01/17/25 02:15 Urine Urobilinogen 1.0 mg/dL (Negative) 01/17/25 02:15 Ur Leukocyte Esterase Negative (Negative) 01/17/25 02:15 Urine RBC 0-2 /hpf (0-2) 01/17/25 02:15 Urine WBC 0-5 /hpf (0-5) 01/17/25 02:15 Ur Squamous Epith Cells 0-5 /hpf (0-5) 01/17/25 02:15 Amorphous Sediment Not Reportable 01/17/25 02:15 Urine Bacteria None seen /hpf (NONE) 01/17/25 02:15 Hyaline Casts 4.52 /lpf 01/17/25 02:15 Vitals Last Vital Signs Temp 97.8 F 01/17/25 08:00 Pulse 76 01/17/25 08:00 Resp 18 01/17/25 08:00 BP 125/76 01/17/25 08:00 Pulse Ox 90 01/17/25 08:00 O2 Del Method Room Air 01/17/25 08:00 Discharge Plan Discharge Patient Disposition: Home Condition: Stable Prescriptions: New Jannet DVT-PE Treat 30D Start 5 mg (74 tabs) tablets,dose pack See Rx Instructions .ROUTE .COMPLEX Qty: 74 0RF Rx Instructions: orally per package directions metoprolol tartrate 25 mg Tablet 25 mg PO BID@0900,2100 Qty: 60 0RF Continued acetaminophen [Tylenol] 325 mg Tablet 650 mg PO QID PRN (Reason: Pain) donepezil 10 mg Tablet 10 mg PO QPM memantine 10 mg Tablet 10 mg PO BID Other Ambulatory Orders: MCT/Event Monitor 30 Days (Routine) Timeframe: 1 Day Facility: [facility] - Location: Radiology Ordered By: Lisa Miles Referrals: Daniel Dozier MD [Primary Care Provider, Internal Medicine] - 4-7 days Mohamud Rock MD [Physician, Orthopedics] - 2 weeks Rendon,Alpesh, M.D [Physician, Cardiology] - 1 month David Byers MD [Hospitalist, Oncology] - 1-3 days Discharge Diet: Cardiac Discharge Activity: As per PT/OT instructions Patient Instructions: Opioid Safety Coding Level of Care Code Acute Code for Chg Fwd Diagnoses Pulmonary embolism I26.94 Pulmonary embolism type: multiple subsegmental (without acute cor pulmonale) Fx clavicle shaft-closed S42.025A Encounter type: initial encounter Fracture alignment: nondisplaced Laterality: left Syncope R55 Syncope type: unspecified Collapse R55 DVT (deep venous thrombosis) I82.409 Hematoma T14.8XXA
[2025-01-17 09:43] LABS: Partial Thromboplastin Time 38.2 SECONDS (23.9-36.7)
--- NOTE | 2025-01-17 09:54 | ECG_ITS ---
[facility]: 2025-01-17 Pat Name: Adair Vaughan Department: Room: 111 Gender: Male [employer]: : 1945 Requested By: Lisa Miles Order Number: [id number] Daniel MD: KIYA PARKER Measurements Intervals Boelus Rate: 55 P: 63 CT: 195 QRS: 28 QRSD: 87 T: 19 QT: 483 QTc: 463 Interpretive Statements SINUS BRADYCARDIA WITH OCCASIONAL VENTRICULAR PREMATURE COMPLEXES WITH OCCASIONAL SUPRAVENTRICULAR PREMATURE COMPLEXES PROLONGED QT INTERVAL Compared to ECG 01/16/2025 20:09:10 Prolonged QT interval now present Atrial fibrillation no longer present Aberrant conduction of supraventricular beat(s) no longer present ST (T wave) deviation no longer present Electronically Signed On 01-17-2025 23:38:37 CDT by KIYA PARKER [email or web address]
--- NOTE | 2025-01-17 10:51 | MR_ITS ---
WS: [id number] MRI HEAD WITH CONTRAST TECHNIQUE: Sagittal T1, T2 axial, T2 axial FLAIR, axial susceptibility weighted imaging, axial diffusion weighted images, and coronal T2 images were obtained. Pre and post-T1 axial and post T1 coronal images. ADC and FSPGR images. CLINICAL INFORMATION: altered mental status FINDINGS: No evidence of restricted diffusion to suggest acute ischemia. Ventricular system and basal cisterns are patent. Normal posterior fossa. Normal vascular flow voids at the skull base. No extra-axial fluid collections. Mild mucosal thickening in the paranasal sinuses. Mastoid air cells are well aerated. Tiny chronic lacunar infarct RIGHT thalamus. Prominent perivascular spaces in the basal ganglia. Advanced symmetric atrophy temporal lobes hippocampal formations. Normal optic chiasm and pituitary infundibulum. Tiny chronic lacunar infarcts in the RIGHT cerebellum and catherine. Mild small vessel changes. Mild parenchymal volume loss. Small vessel changes in the catherine. No abnormal gadolinium enhancement. MR/MR head wo/w con [id number] IMPRESSION: Some images limited by patient motion. Fast imaging performed. 1. No evidence of restricted diffusion to suggest acute ischemia 2. No acute findings considering motion artifact
[2025-01-17] MEDS: LORazepam 2 mg/mL INJ 1 mL 0.5 MG IVP (12:05)
[2025-01-17 12:51] LABS: Chol HDL Ratio 3.35 mg/dL (1.0-5.00); Cholesterol 181 mg/dL (0-200); HDL Cholesterol 54 mg/dL (60-100); LDL Cholesterol Calculated 112 mg/dL (50-129); Thyroid Stimulating Hormone 4.33 uIU/mL (0.27-4.20); Triglycerides 77 mg/dL (0-150); VLDL Cholestrol Calculation 15 mg/dL (0-30)
--- NOTE | 2025-01-17 12:53 | PC.OT ---
Patient unavailable for OT Tx at this time due to scheduled MRI. Continue with POC, attempt Tx at a later time.
[2025-01-17] MEDS: gadobenate dimeglumine 20 mL vial 15 ML IV (12:57)
[2025-01-17 14:06] LABS: Vitamin B12 181 pg/mL (232-1245)
[2025-01-17] MEDS: cyanocobalamin 1,000 mcg/mL SDV 1000 MCG IM (15:31)
[2025-01-17] MEDS: donepezil 5 MG Tablet 10 MG PO (17:38)
[2025-01-18] VITALS (8 sets, daily range): BP systolic 96–137; BP diastolic 72–98; PULSE 62–90; RESP 14–20; TEMP 36.4–37.1; O2SAT 92–97
[2025-01-18] MEDS: morphine 4 mg/mL SDV 1 mL 2 MG IVP (02:40)
[2025-01-18 05:00] LABS: Basophils % 0.5 %; Hematocrit 38.4 % (37-53); Lymphocytes % 16.5 %; Mean Corpuscular HGB Conc 32.6 g/dL (30-55); Mean Corpuscular Hemoglobin 32.7 pg (27-33); Mean Corpuscular Volume 100.5 fl (82-101); Mean Platelet Volume 11.2 fL (7.4-10.4); Monocytes # 0.6 10^3/uL (0.2-0.9); Monocytes % 9.8 %; Neutrophils # 4.54 10^3/uL (1.8-7.7); Neutrophils % 72.7 %; Nucleated Red Blood Cells % 0 %; Platelet Count 150 10^3/cmm (157-399); Red Blood Count 3.82 10^6/uL (3.85-5.65); Red Cell Distribution Width 13.9 % (12.1-15.1); White Blood Count 6.24 10^3/uL (3.29-11.43)
[2025-01-18 05:18] LABS: Alanine Aminotransferase 9 U/L (0-41); Albumin Level 2.8 g/dL (3.5-5.2); Alkaline Phosphatase 130 U/L (40-130); Anion Gap 10.2 (5-19); Aspartate Amino Transferase 13 U/L (0-40); Blood Urea Nitrogen 14 mg/dL (8-23); Calcium 8.4 mg/dL (8.5-10.5); Carbon Dioxide 26 mmol/L (22-29); Chloride 104 mmol/L (98-107); Creatinine Clr Calc Pharmacy 64.3589; Globulin 2.8 g/dL (1.3-4.6); Glucose 100 mg/dL (65-115); Osmolality Calculated 283 mOsm/kg (285-295); Potassium 4.2 mmol/L (3.5-5.1); Sodium 136 mmol/L (136-145); Total Bilirubin 0.6 mg/dL (0.15-1.2); Total Protein 5.6 g/dL (6.6-8.7)
--- NOTE | 2025-01-18 09:21 | PC.SOCIAL ---
IMM Update Pg 2 of IMM updated and reviewed with patient, who verbalized understanding. Copy provided.
[2025-01-18] MEDS: pantoprazole 40 mg SDV IVP (09:36)
[2025-01-18] MEDS: cyanocobalamin 1,000 mcg/mL SDV 1000 MCG IM (09:37)
[2025-01-18] MEDS: apixaban 5 mg Tablet 10 MG PO ×2 (09:37→21:47)
[2025-01-18] MEDS: memantine 5 mg tablet 10 MG PO ×2 (09:37→18:05)
--- NOTE | 2025-01-18 10:34 | P.PN_ITS ---
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 able to tell me his name and states is he sleepy. left shoulder sling in place mri neg for acute stroke Vitals/I&O/Wt Last Vital Signs Temp 98.2 F 01/18/25 08:00 Pulse 75 01/18/25 08:00 Resp 18 01/18/25 08:00 BP 120/81 01/18/25 08:00 Pulse Ox 96 01/18/25 08:00 O2 Del Method Nasal Cannula 01/18/25 08:00 O2 Flow Rate 2 01/17/25 12:00 01/17/25 01/18/25 01/18/25 22:59 06:59 14:59 Intake Total 270 / 390 0 / 390 Output Total 100 / 100 Balance 170 / 290 0 / 290 Weight last 48 hrs Weight 71.169 kg Weight 69.944 kg Physical Exam 2 Narrative: General: Alert oriented x1 laying in bed, appears sleepy. HEENT: Normocephalic, atraumatic, EOMI, breathing room air Cardio: Regular rate rhythm, normal S1-S2, no gross murmurs noted., Currently in sinus rhythm. Respiratory: Good bilateral air entry, no wheezes no rhonchi appreciated GI: Abdomen soft, nontender, nondistended, bowel sounds + Behavior: Appropriate and cooperative Extremities: No edema bilateral lower extremities, both calves symmetrical left shoulder sling in place Data 01/18/25 04:40 01/18/25 04:40 A&P Assessment and plan (1) Pulmonary embolism: (2) Fx clavicle shaft-closed: (3) Syncope: (4) Collapse: (5) DVT (deep venous thrombosis): (6) Hematoma: Plan #Bilateral pulmonary emboli #Right leg DVT #Left clavicular fracture with adjacent hematoma #Syncope, collapse #History of basal ganglia lacunar infarct/stroke #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 Possible vasovagal? ? He does have evidence of DVT and bilateral pulmonary embolism. Rule out malignancy ? Check CT chest abdomen pelvis without contrast. ? Does have a creatinine of 1.3. Baseline unknown. I will hold off on giving contrast at this time ? He will need hematology referral at discharge ? Placed on heparin drip and anticoagulate patient. ? Plan to discharge on Eliquis. However will discuss with patient regarding patient's syncope and collapse episodes as there may be risk of brain bleed. Will discuss with him regarding benefits and risks before discharging on Eliquis ? PT OT ? Placed on cardiac telemetry. Will evaluate for arrhythmias. Check cardiac echo ? Recommend 30-day event monitor to rule out cardiac cause of syncope ? Check orthostatic vitals in a.m. ? Continue normal saline 75 cc/h ? Check lipid profile, TSH, hemoglobin A1c - Consult orthopedic surgery, await recommendations - check cbc at 10 pm Full Code DVT PPX: pt on heparin drip 01/16/2025 Patient doing tobacco at this time feels well. Awaiting to work with physical therapy. Awaiting orthopedic surgery consult. Will place left shoulder in a sling. CT shoulder ordered to rule out joint fracture. Continue heparin drip at this time. Will move to CSU today. Transition to Eliquis starting tomorrow. Patient does dip down to 88 on room air. He will need home oxygen evaluation at discharge. CT abdomen pelvis negative for gross malignancy, CT chest negative for gross malignancy as well. He will need hematological hypercoagulable workup as an outpatient. Will require hematology referral at discharge Will check orthostatic vitals today Check PT OT CT head did show previous bilateral basal ganglia lacunar infarcts. This will cause lack of coordination and balance and possibly the reason for his falls? He will need event monitor at discharge for 30 day to rule out underlying cardiac arrhythmias. Awaiting echo carotid Dopplers at this time. Tentative plan to discharge tomorrow if remains stable. 01/17/2025 Cardiac echo shows normal EF 55 to 60% with grade 1 diastolic dysfunction mild mitral regurgitation. Carotid Dopplers are pending CT abdomen pelvis negative for gross malignancy, CT chest negative for gross malignancy as well. CT head did show previous bilateral basal ganglia lacunar infarcts. Overnight with patient's mild confusion he probably had sundowners. He does have early dementia as per patient's son on admission. Mental status is now back to baseline. Will check orthostatic vitals today. Stop heparin drip Transition to Eliquis 10 twice daily x 7 days and then 5 twice daily thereafter. Will need hematology consultation at discharge Will order event monitor for 30 days to rule out underlying cardiac arrhythmias. I will stop Cardizem every 6 at this time. I am not convinced his rhythm was A- fib overnight. I do acknowledge PACs and PVCs. Will start on 25 metoprolol twice daily going forward and set up patient with event monitor to follow-up with cardiology as an outpatient. Once carotid Dopplers have been reviewed I may go ahead discharge patient home with outpatient follow-ups as previously discussed with patient and his son. We will aim for discharge closer to the afternoon as I would have to monitor him on telemetry. 01/18/2025 Cardiac echo shows normal EF 55 to 60% with grade 1 diastolic dysfunction mild mitral regurgitation. Carotid Dopplers are pending CT abdomen pelvis negative for gross malignancy, CT chest negative for gross malignancy as well. CT head did show previous bilateral basal ganglia lacunar infarcts. MRI brain shows: 1. No evidence of restricted diffusion to suggest acute ischemia 2. No acute findings considering motion artifact Continue Eliquis 10 twice daily for 7 days then twice daily thereafter. May need hematology consultation at discharge Event monitor to be ordered at discharge for 30 days to rule out underlying cardiac arrhythmias. Patient was bradycardic overnight with lowest heart rate 45. I will stop metoprolol at this time. Carotid Dopplers showed less than 50% stenosis bilaterally. We will stop morphine at this time. Will switch to tramadol at time of discharge. Once patient more awake and alert and back to baseline for mental status standpoint we will consider discharge later today versus tomorrow. He does have hospital-acquired delirium. Son was personally updated yesterday. I discussed with him regarding all of patients studies so far and that my clinical suscpiscion is that pt is experiencing delirium. Will check urinalysis today, bladder scan vitals are stable, will need home o2 eval at time of discharge PDMP PDMP Reviewed: Not Reviewed Attestations 2 Medical Necessity Statement*: Possible tentative discharge once mental status improves later today vs tomorrow. Diagnoses Pulmonary embolism I26.94 Pulmonary embolism type: multiple subsegmental (without acute cor pulmonale) Fx clavicle shaft-closed S42.025A Encounter type: initial encounter Fracture alignment: nondisplaced Laterality: left Syncope R55 Syncope type: unspecified Collapse R55 DVT (deep venous thrombosis) I82.409 Hematoma T14.8XXA
[2025-01-18] MEDS: sodium chloride 0.9% 1,000 ML 100 ML IV (16:19)
[2025-01-18 16:58] LABS: Bilirubin Urine Negative (Negative); Blood Urine 3+ (Negative); Glucose Urine UA Negative (Normal); Ketones Urine Negative (Negative); Leukocyte Esterase Urine 1+ (Negative); Nitrate Urine Negative (Negative); Protein Urine 1+ (Negative); Specific Gravity, Urine 1.019 (1.005-1.030); Urine Appearance Cloudy (CLEAR)
[2025-01-18 17:03] LABS: Bacteria Urine 1+ /hpf; Hyaline Casts Urine 6.17 /lpf; RBC Urine >100 /hpf (0-2); WBC Urine 21-50 /hpf (0-5)
[2025-01-18 17:19] LABS: Add Urine Culture? Yes; Urine Color Orange (Yellow)
[2025-01-18] MEDS: donepezil 5 MG Tablet 10 MG PO (18:05)
--- NOTE | 2025-01-18 18:52 | PC.NURSE ---
at approx 1700 pt went into svt at 150's.bp stable.he slowed to sr in approx 5 min.
--- NOTE | 2025-01-18 22:04 | PC.NURSE ---
Patient in 03/14 pain in shoulder, no pain meds avaliable. Requesting pain medications that don't affect mentation. Dr. Carias to place orders.
[2025-01-18] MEDS: TRAMadol 50 mg Tablet PO (22:08)
[2025-01-19] VITALS (8 sets, daily range): BP systolic 123–153; BP diastolic 75–96; PULSE 73–103; RESP 13–18; TEMP 36.6–37.2; O2SAT 91–95
[2025-01-19] MEDS: sodium chloride 0.9% 1,000 ML 100 ML IV ×2 (02:28→13:10)
[2025-01-19 03:58] LABS: Basophils % 0.3 %; Eosinophils % 0.2 %; Hematocrit 37.6 % (37-53); Lymphocytes # 1.3 10^3/uL (0.8-4.8); Lymphocytes % 20.8 %; Mean Corpuscular HGB Conc 32.4 g/dL (30-55); Mean Corpuscular Hemoglobin 32.2 pg (27-33); Mean Corpuscular Volume 99.2 fl (82-101); Mean Platelet Volume 11.6 fL (7.4-10.4); Monocytes # 0.6 10^3/uL (0.2-0.9); Monocytes % 9.5 %; Neutrophils # 4.44 10^3/uL (1.8-7.7); Neutrophils % 68.9 %; Nucleated Red Blood Cells % 0 %; Platelet Count 164 10^3/cmm (157-399); Red Blood Count 3.79 10^6/uL (3.85-5.65); White Blood Count 6.44 10^3/uL (3.29-11.43)
[2025-01-19 04:26] LABS: Anion Gap 13.1 (5-19); Blood Urea Nitrogen 21 mg/dL (8-23); Calcium 8.1 mg/dL (8.5-10.5); Carbon Dioxide 24 mmol/L (22-29); Chloride 105 mmol/L (98-107); Glucose 114 mg/dL (65-115); Osmolality Calculated 290 mOsm/kg (285-295); Phosphorus 2.9 mg/dL (2.5-4.5); Potassium 4.1 mmol/L (3.5-5.1); Sodium 138 mmol/L (136-145)
[2025-01-19] MEDS: TRAMadol 50 mg Tablet PO ×2 (04:35→11:24)
--- NOTE | 2025-01-19 05:37 | PC.NURSE ---
Patient had episode of SVT with HR into 150's starting at 0526 last till 530. Current BP is 127/75 HR 66 NSR O2 92% on RA. At this time patient has no symptoms. Dr. Bhakta notified, awaiting reply.
[2025-01-19] MEDS: pantoprazole 40 mg SDV IVP (09:07)
[2025-01-19] MEDS: cyanocobalamin 1,000 mcg/mL SDV 1000 MCG IM (09:08)
[2025-01-19] MEDS: memantine 5 mg tablet 10 MG PO ×2 (09:08→17:54)
[2025-01-19] MEDS: apixaban 5 mg Tablet 10 MG PO ×2 (09:08→20:22)
--- NOTE | 2025-01-19 09:32 | P.PN_ITS ---
Subjective 2 Subjective: all he remembers is being on the tractor and then being on the ground. denies any symptoms that day. no complaints. states no shoulder pain today. took ultram 0400 today. Vitals/I&O/Wt Last Vital Signs Temp 98.1 F 01/19/25 08:00 Pulse 78 01/19/25 08:00 Resp 16 01/19/25 08:00 BP 127/76 01/19/25 08:00 Pulse Ox 94 01/19/25 08:00 O2 Del Method Room Air 01/19/25 08:00 O2 Flow Rate 2 01/17/25 12:00 01/18/25 01/19/25 01/19/25 22:59 06:59 14:59 Intake Total 1000 / 1000 120 / 120 Output Total 175 / 275 151 / 426 150 / 150 Balance -175 / -275 849 / 574 -30 / -30 Weight last 48 hrs Weight 72.206 kg Weight 71.169 kg Physical Exam 2 Narrative: General: Alert oriented to person, place and knows son. laying in bed, awake. Cardio: Regular rate rhythm, normal S1-S2, no gross murmurs noted., Currently in sinus rhythm. Respiratory: diminished BS, no w/r/r GI: Abdomen soft, nontender, nondistended, bowel sounds + Extremities: No edema bilateral lower extremities, both calves symmetrical left shoulder sling in place Data 01/19/25 03:38 01/19/25 03:38 A&P Assessment and plan (1) Pulmonary embolism: bilateral PE secondary to DVT. However, etiology found at this time. was on heparin, transitioned to Eliquis. Plan to discharge on Eliquis. However will discuss with patient regarding patient's syncope and collapse episodes as there may be risk of brain bleed. Will discuss with him regarding benefits and risks before discharging on Eliquis (2) Fx clavicle shaft-closed: per ortho, sling and pain control. altered mental status on morphine. Changed to Ultram and so far is effective (3) Syncope: Recommend 30-day event monitor to rule out cardiac cause of syncope ? Check orthostatic vitals in a.m. was ordered, but I do not see that it has been done. 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 stopped b pete due to bradycardia. (8) Falls: (9) Dementia: on oral medications. lives alone s/p cva in long-term NH (10) BPH (benign prostatic hyperplasia): Start Flomax Plan Full Code DVT on therapeutic dosing HOspital course: 01/16/2025 On heparin, transition to Eliquis tomorrow. Note the patient's pulse ox dips to 88% on room air will need home oxygen evaluation at discharge workup for gross malignancy negative with CT abdomen and pelvis patient will need hypercoagulable workup as an outpatient. He will need a hematology referral at discharge 01/17/2025 Cardiac echo shows normal EF 55 to 60% with grade 1 diastolic dysfunction mild mitral regurgitation. Carotid Dopplers are pending Overnight with patient's mild confusion he probably had sundowners. He does have early dementia as per patient's son on admission. Mental status is now back to baseline. Transition to Eliquis 10 twice daily x 7 days and then 5 twice daily thereafter. Will need hematology consultation at discharge Will order event monitor for 30 days to rule out underlying cardiac arrhythmias. Patient with cardiac arrhythmia questionable underlying etiology. Patient was on Cardizem this was stopped. Then metoprolol was started. Await carotid Dopplers 01/18/2025 MRI brain shows: 1. No evidence of restricted diffusion to suggest acute ischemia 2. No acute findings considering motion artifact Continue Eliquis 10 twice daily for 7 days then twice daily thereafter. May need hematology consultation at discharge Event monitor to be ordered at discharge for 30 days to rule out underlying cardiac arrhythmias. Patient was bradycardic overnight with lowest heart rate 45. stop metoprolol at this time. Carotid Dopplers showed less than 50% stenosis bilaterally. We will stop morphine at this time. Will switch to tramadol at time of discharge He does have hospital-acquired delirium. Son was personally updated yesterday. I discussed with him regarding all of patients studies so far and that my clinical suspicion is that pt is experiencing delirium. will need home o2 eval at time of discharge PDMP PDMP Reviewed: Not Reviewed Attestations 2 Medical Necessity Statement*: Patient with altered mental status and resolving delirium. Also with cardiac arrhythmia which is unidentified at this time patient is at risk for cardiac event thus must maintain hospitalization at this time. Coding Level of Care Code Acute Code for [facility] Fwd Diagnoses Pulmonary embolism I26.94 Pulmonary embolism type: multiple subsegmental (without acute cor pulmonale) Fx clavicle shaft-closed S42.025A Encounter type: initial encounter Fracture alignment: nondisplaced Laterality: left Syncope R55 Syncope type: unspecified Collapse R55 Acute deep vein thrombosis (DVT) of femoral vein of right lower extremity I82.411 DVT location: lower extremity Affected thrombotic vein of extremity: femoral Chronicity: acute Laterality: right Old lacunar stroke without late effect Z86.73 Cardiac arrhythmia I49.9 Falls R29.6 Dementia F03.90 BPH (benign prostatic hyperplasia) N40.0
[2025-01-19] MEDS: donepezil 5 MG Tablet 10 MG PO (17:54)
[2025-01-19] MEDS: tamsulosin 0.4 mg Capsule PO (20:22)
[2025-01-20] VITALS (7 sets, daily range): BP systolic 106–153; BP diastolic 67–96; PULSE 80–107; RESP 14–23; TEMP 36.4–37.1; O2SAT 92–96
[2025-01-20] MEDS: TRAMadol 50 mg Tablet PO ×3 (01:35→20:04)
[2025-01-20] MEDS: sodium chloride 0.9% 1,000 ML 100 ML IV (02:55)
[2025-01-20] MEDS: cyanocobalamin 1,000 mcg/mL SDV 1000 MCG IM (08:31)
[2025-01-20] MEDS: apixaban 5 mg Tablet 10 MG PO ×2 (08:31→20:03)
[2025-01-20] MEDS: memantine 5 mg tablet 10 MG PO ×2 (08:32→17:22)
[2025-01-20] MEDS: tamsulosin 0.4 mg Capsule PO (08:33)
--- NOTE | 2025-01-20 12:51 | ECG_ITS ---
[facility] Date: 2025-01-20 Pat Name: Adair Vaughan Department: Room: 111 Gender: Male [employer]: : 1945 Requested By: Jaxon Hernandez Order Number: [id number] Daniel MD: Graciela Smith M.D. Measurements Intervals [place] Rate: 151 P: 0 ID: 0 QRS: 38 QRSD: 107 T: 0 QT: 230 QTc: 365 Interpretive Statements SUPRAVENTRICULAR TACHYCARDIA NONSPECIFIC ST & T-WAVE ABNORMALITY Compared to ECG 01/17/2025 09:54:37 SVT rhythm is new Electronically Signed On 01-20-2025 19:55:52 CDT by Graciela Smith M.D. [email or web address]
--- NOTE | 2025-01-20 14:56 | PM.PN ---
Subjective Subjective: Patient has difficulty expressing himself and his mentation has fluctuated over the hospital course. His son is present and describes worsening confusion and memory issues. The patient does not remember saying no to going to the halfway facility. He is very vague when asked about his symptoms when his heart rate is fast. He says he just does not feel right. At the same time he did not seem to remember having the tachycardia around 08/16/1930 this afternoon. Note the son is DPOA however when I asked the patient what his preference would be understanding about his immobilization of his left arm and need for close monitoring he was in agreement to go to a residential Vitals/I&O/Wt Last Vital Signs Temp 98.6 F 01/20/25 12:00 Pulse 97 01/20/25 12:00 Resp 16 01/20/25 12:00 BP 133/91 01/20/25 12:00 Pulse Ox 96 01/20/25 12:00 O2 Del Method Room Air 01/20/25 12:00 O2 Flow Rate 2 01/17/25 12:00 01/19/25 01/20/25 01/20/25 22:59 06:59 14:59 Intake Total 480 / 1720 1000 / 2720 1360 / 1360 Output Total 700 / 850 400 / 1250 225 / 225 Balance -220 / 870 600 / 1470 1135 / 1135 Weight last 48 hrs Weight 72.665 kg Weight 72.206 kg Physical Exam Narrative: General: Alert oriented to person, place. laying in bed, awake. Cardio: Regular rate rhythm, normal S1-S2, no gross murmurs noted., Currently in sinus rhythm. Had an SVT that looks like a flutter around 1230 today this lasted 10 minutes and now back in normal sinus rhythm Respiratory: diminished BS, no w/r/r GI: Abdomen soft, nontender, nondistended, bowel sounds + Extremities: No edema bilateral lower extremities left shoulder sling in place Data 01/19/25 03:38 01/19/25 03:38 Micro: Microbiology 01/18/25 15:50 Urine Culture - Preliminary Urine,Clean Catch Gram Negative Rods A&P Assessment and plan (1) Pulmonary embolism: bilateral PE secondary to DVT. was on heparin, transitioned to Eliquis. Plan to discharge on Eliquis. However will discuss with patient regarding patient's syncope and collapse episodes as there may be risk of brain bleed. Will discuss with him regarding benefits and risks before discharging on Eliquis (2) Fx clavicle shaft-closed: per ortho, sling and pain control. altered mental status on morphine. Changed to Ultram and so far is effective (3) Syncope: Recommend 30-day event monitor to rule out cardiac cause of syncope Patient with positive orthostatic vitals this morning at 4 AM questionable with a blood pressure going from 153/88 to 127/86? 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 stopped b pete due to bradycardia. (8) Falls: (9) Dementia: on oral medications. lives alone s/p cva in [facility] (10) BPH (benign prostatic hyperplasia): Start Flomax Plan Previous attending documented that beta-pete was stopped due to bradycardia however I will restart at a low dose and reevaluate now that patient has been hydrated. We may need to initiate midodrine to help with blood pressure and then changed to Cardizem or digoxin for heart rate control. Case management for discharge to halfway facility for PT OT due to clavicular fracture close monitoring of vital signs and medications. Discussed with son and patient and patient agrees to go to halfway facility where his resides. Son is aware that mentation may deteriorate again with a transition to a new place. At the skilled facility patient can also have speech therapy to help with cognition and make further assessments of severity of cognitive impairment Will order home O2 eval today for preparation of discharge Full Code DVT on therapeutic dosing HOspital course: 01/16/2025 On heparin, transition to Eliquis tomorrow. Note the patient's pulse ox dips to 88% on room air will need home oxygen evaluation at discharge workup for gross malignancy negative with CT abdomen and pelvis patient will need hypercoagulable workup as an outpatient. He will need a hematology referral at discharge 01/17/2025 Cardiac echo shows normal EF 55 to 60% with grade 1 diastolic dysfunction mild mitral regurgitation. Carotid Dopplers are pending Overnight with patient's mild confusion he probably had sundowners. He does have early dementia as per patient's son on admission. Mental status is now back to baseline. Transition to Eliquis 10 twice daily x 7 days and then 5 twice daily thereafter. Will need hematology consultation at discharge Will order event monitor for 30 days to rule out underlying cardiac arrhythmias. Patient with cardiac arrhythmia questionable underlying etiology. Patient was on Cardizem this was stopped. Then metoprolol was started. Await carotid Dopplers 01/18/2025 MRI brain shows: 1. No evidence of restricted diffusion to suggest acute ischemia 2. No acute findings considering motion artifact Continue Eliquis 10 twice daily for 7 days then twice daily thereafter. May need hematology consultation at discharge Event monitor to be ordered at discharge for 30 days to rule out underlying cardiac arrhythmias. Patient was bradycardic overnight with lowest heart rate 45. stop metoprolol at this time. Carotid Dopplers showed less than 50% stenosis bilaterally. We will stop morphine at this time. Will switch to tramadol at time of discharge He does have hospital-acquired delirium. Son was personally updated yesterday. I discussed with him regarding all of patients studies so far and that my clinical suspicion is that pt is experiencing delirium. will need home o2 eval at time of discharge PDMP PDMP Reviewed: Not Reviewed Attestations Medical Necessity Statement*: Patient with altered mental status and resolving delirium. Also with cardiac arrhythmia which is unidentified at this time patient is at risk for cardiac event thus must maintain hospitalization at this time. Coding Level of Care Code Acute Code for [facility] Fwd Diagnoses Pulmonary embolism I26.94 Pulmonary embolism type: multiple subsegmental (without acute cor pulmonale) Fx clavicle shaft-closed S42.025A Encounter type: initial encounter Fracture alignment: nondisplaced Laterality: left Syncope R55 Syncope type: unspecified Collapse R55 Acute deep vein thrombosis (DVT) of femoral vein of right lower extremity I82.411 DVT location: lower extremity Affected thrombotic vein of extremity: femoral Chronicity: acute Laterality: right Old lacunar stroke without late effect Z86.73 Cardiac arrhythmia I49.9 Falls R29.6 Dementia F03.90 BPH (benign prostatic hyperplasia) N40.0
[2025-01-20] MEDS: donepezil 5 MG Tablet 10 MG PO (17:22)
[2025-01-20 18:30] LABS: Vitamin B12 > 2000 pg/mL (232-1245)
--- NOTE | 2025-01-20 18:48 | PC.NURSE ---
Provider is updated that patient has been in SVT at 180-190's for the last few minutes. Provider said to wait the 10 minutes to see if it goes down otherwise give the metoprolol early.
[2025-01-20] MEDS: metoprolol tartrate 25 mg Tablet PO (20:04)
[2025-01-21] MEDS: TRAMadol 50 mg Tablet PO (02:38)
[2025-01-21 03:48] VITALS: BP 123/76; PULSE 65; RESP 15; TEMP 36.3
[2025-01-21 06:38] LABS: 25 Hydroxy Vitamin D 9 ng/mL (30-100); Anion Gap 15.8 (5-19); Blood Urea Nitrogen 20 mg/dL (8-23); Calcium 8.6 mg/dL (8.5-10.5); Carbon Dioxide 23 mmol/L (22-29); Chloride 103 mmol/L (98-107); Glucose 78 mg/dL (65-115); Osmolality Calculated 287 mOsm/kg (285-295); Potassium 3.8 mmol/L (3.5-5.1); Sodium 138 mmol/L (136-145)
[2025-01-21 08:00] VITALS: BP 135/93; PULSE 74; RESP 20; TEMP 36.4; O2SAT 96
[2025-01-21] MEDS: multivitamin therapeutic Tablet 1 TAB PO (08:13)
[2025-01-21] MEDS: b-complex-vitamin c Tablet 1 EACH PO (08:13)
[2025-01-21] MEDS: cyanocobalamin 1,000 mcg Tablet 500 MCG PO (08:13)
[2025-01-21] MEDS: apixaban 5 mg Tablet 10 MG PO (08:13)
[2025-01-21] MEDS: memantine 5 mg tablet 10 MG PO (08:13)
[2025-01-21] MEDS: tamsulosin 0.4 mg Capsule PO (08:13)
[2025-01-21] MEDS: metoprolol tartrate 25 mg Tablet PO (08:13)
--- NOTE | 2025-01-21 09:10 | PC.SOCIAL ---
IMM Update Pg. 2 of IMM Updated and reviewed with patient, who verbalized understanding. Copy provided at bedside.
[2025-01-21 12:00] VITALS: BP 102/63; PULSE 77; RESP 18; TEMP 36.9; O2SAT 95
--- NOTE | 2025-01-21 12:59 | PM.DCS ---
Discharge Providers Date of Admission: 01/15/25 16:42 Date of Discharge: January 21, 2025 Attending Provider at Admission: Lisa Miles MD Attending Provider at Discharge: Steve Robles MD Consults: Mohamud Rock MD Primary Care Provider: Daniel Dozier Diagnoses at Discharge Discharge Diagnosis (1) Pulmonary embolism: Details from hospital stay: Patient has been started on Eliquis 5 mg twice a day. He has small ecchymosis at the clavicle fracture which has not enlarged. There is some risk of fall with his syncope. Telemetry monitoring here showed few PVCs but just in couplets or very brief bigeminy i.e. a few beats no runs. Patient has been started on beta-pete Status: Acute Qualifiers: Pulmonary embolism type: multiple subsegmental (without acute cor pulmonale) Qualified Code(s): I26.94 - Multiple subsegmental thrombotic pulmonary emboli without acute cor pulmonale (2) Fx clavicle shaft-closed: Details from hospital stay: Wear sling as described by Dr. Rock. Status: Acute Qualifiers: Encounter type: initial encounter Fracture alignment: nondisplaced Laterality: left Qualified Code(s): S42.025A - Nondisplaced fracture of shaft of left clavicle, initial encounter for closed fracture (3) Syncope: Details from hospital stay: Cannot exclude ventricular arrhythmia but monitoring here has shown nothing more than couplets. He does have intermittent A-fib and also sinus rhythm on beta-pete running around 60. 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 Will have Zio patch for 30 days Status: Acute (8) Dementia: Details from hospital stay: Mild and stable. Discharge planning made with patient and son Vinny who is currently present at bedside Status: Acute (9) BPH (benign prostatic hyperplasia): Details from hospital stay: Continue home Flomax Status: Acute Reason for Visit Reason for Visit: Syncope Brief History: Adair Vaughan is a 79 year old male with past medical history of early dementia on donepezil and memantine by primary care doctor, long-term ongoing issues of dizziness, syncope and collapse presented to the hospital today after another syncopal episode. Patient was apparently mowing the lawn and had an episode of syncope and collapse. Patient's son found him on the ground and brought him to the hospital. Patient states that patient does have issues with blood pressure being low and at times has been 80/50 and will have syncope and collapse. Patient states that this has been going for a long time. He has a lot of concerns regarding patient's syncopal episodes. He also reports having headaches for 1 to 2 years is a former smoker quit at the age of 39. Also reports hematochezia from time to time and hematuria however lately has not had that issue. Patient's son states that patient sleeps a lot during the day. He states he has a history of BPH and has had complete evaluation however malignancy was never found. This was years ago when he saw urology. He also had a colonoscopy but that was years ago. He states he brought his father to the ER 1 or 2 years ago with similar complaints and recommendation was to admit the patient at the time however patient declined admission. Today patient denies nausea vomiting diarrhea chest pain shortness of breath headache hematochezia, hematuria. Review of systems all negative at this point. Son Vinny states that the patient's episodes have been going on for about 2 years. He had Tuesday of this admission and the preceding Tuesday but last episode prior to that was 2 months ago. Patient has [facility] but falls were attributed to old age. Notably beta-pete had been stopped in the past due to bradycardia but he is tolerated it okay here Hospital Course Hospital Course 79-year-old male with recurrent syncopal type falls here with his son Vinny. He was found to have DVT and PE. Atrial fibrillation has been treated with the anticoagulation concomitantly started for clots as well as beta-pete. Patient had a left clavicle fracture with his fall evaluated by Pranav and judged to be well aligned and treated conservatively with a shoulder sling for at least 4 weeks follow-up in orthopedic clinic for repeat x-ray first visit 2 weeks Patient will have a Zio patch to monitor heart rhythm for 30 days Physical Exam Narrative: General well-developed well-nourished male in no acute cardiopulmonary stress CV regular rate and rhythm Lungs clear to auscultation bilaterally Abdomen positive bowel sounds soft nontender Calves left calf is enlarged versus the right with 1+ edema on the left. Not on the right Mentation alert and pleasant Discharge Data Studies Completed and Pending Completed Studies During Hospitalization Category Date Time Status CT abdomen pelvis wo con [id number] Stat Cat Scan 01/15/25 18:[address] cervical spin wo con* [id number] Stat Cat Scan 01/15/25 14:[address] chest w con* [id number] Stat Cat Scan 01/15/25 14:[address] head wo con* [id number] Stat Cat Scan 01/15/25 14:[address] shoulder LT wo con* [id number] Stat Cat Scan 01/16/25 10:17 [place] [id number] Stat Exams 01/15/25 14:44 Completed XR shoulder LT min 2V* [id number] Stat Exams 01/15/25 14:44 Completed MR head wo/w con [id number] Stat MRI 01/17/25 10:51 Completed [place] carotid duplex BI* [id number] Urgent Ultrasound 01/15/25 18:03 Completed US echo complete [CV. echo complete* [id number]] Stat Ultrasound 01/15/25 15:57 Completed US venous duplex lower extremity bilat [CV venous Ultrasound 01/15/25 15:57 [place] [id number]] Routine Pending at discharge Category Date Time Status XR shoulder RT min 2V* [id number] Stat Exams 01/15/25 14:38 Taken Urine Culture Routine Lab 01/18/25 15:50 Results Radiology Impressions Cervical Spine CT 01/15/25 14:38 IMPRESSION: 1. No acute cervical spine fracture. 2. Extensive facet joint arthropathy greatest on the LEFT. No high-grade central stenosis. Chest CT 01/15/25 14:38 IMPRESSION: 1. Bilateral pulmonary emboli. Largest burden in the proximal RIGHT lower lobe pulmonary artery. Additional more peripheral segmental and subsegmental emboli. 2. No pneumothorax. 3. No pulmonary contusion. 4. LEFT clavicular fracture. Fractures in both the medial and lateral clavicle with adjacent hematoma. 5. No rib fracture identified. There is motion artifact from breathing obscuring detail. Nondisplaced rib or clavicle fracture would be difficult to visualize. 6. Moderate cardiomegaly. 7. Intact thoracic aorta. 8. Hepatic cysts. Notified Akbar Magana DO at 01/15/2025 3:[address] 01/15/25 14:38 IMPRESSION: 1. No acute intracranial hemorrhage or edema. 2. Moderate cerebral and cerebellar volume loss and small vessel disease. 3. Bilateral lacunar infarcts in the basal ganglia. 4. RIGHT maxillary sinusitis. Chronic inspissated material fills the RIGHT maxillary sinus. Clavicle X-Ray 01/15/25 14:44 IMPRESSION: 1. Nondisplaced fractures of the distal and medial LEFT clavicle. AC joint separation. Shoulder X-Ray 01/15/25 14:44 IMPRESSION: 1. Comminuted nondisplaced distal clavicle fracture. There may be low-grade AC joint separation also. Venous Duplex 01/15/25 15:57 IMPRESSION: There is evidence of DVT involving the right superficial femoral vein Abdomen/Pelvis CT 01/15/25 18:02 IMPRESSION: 1. The left hepatic cyst has increased in size by 1 cm over the past 6 years. The appearance is not concerning for malignancy. Two other tiny cysts remain stable. 2. Severe prostate enlargement 3. Bibasilar atelectasis 4. A benign renal cyst or cysts have been detected. No further follow-up imaging is required. 5. Sigmoid diverticulosis COMMENTS: Consistent with the [employer]'s Incidental Findings Committee white paper (J Am Kofi Radiol 2018): Any incidental renal lesion less than 1 cm or classified as too small to characterize, or any incidental cystic renal lesion characterized as simple-appearing, is likely benign. No follow-up imaging is recommended for these lesions per consensus recommendations based on imaging criteria. Shoulder CT 01/16/25 10:17 IMPRESSION: 1. Segmental clavicular fracture. Distal segmental component of the fracture is comminuted. 2. No shoulder dislocation. 3. Several left-sided rib fractures are identified. These are nondisplaced and difficult to visualize. There are fractures involving the first, fourth, fifth and probably the sixth rib. 4. Soft tissue contusion with hematoma and edema surrounding the LEFT shoulder. 5. LEFT lower lobe compressive atelectasis. Head MRI 01/17/25 10:51 IMPRESSION: Some images limited by patient motion. Fast imaging performed. 1. No evidence of restricted diffusion to suggest acute ischemia 2. No acute findings considering motion artifact Laboratory Results WBC 6.44 10^3/uL (3.29-11.43) 01/19/25 03:38 RBC 3.79 10^6/uL (3.85-5.65) L 01/19/25 03:38 Hgb 12.20 g/dL (11.27-16.99) 01/19/25 03:38 Hct 37.6 % (37-53) 01/19/25 03:38 MCV 99.2 fl (82-101) 01/19/25 03:38 MCH 32.2 pg (27-33) 01/19/25 03:38 MCHC 32.4 g/dL (30-55) 01/19/25 03:38 RDW 14.0 % (12.1-15.1) 01/19/25 03:38 Plt Count 164 10^3/cmm (157-399) 01/19/25 03:38 MPV 11.6 fL (7.4-10.4) H 01/19/25 03:38 Neut % (Auto) 68.9 % 01/19/25 03:38 Lymph % (Auto) 20.8 % 01/19/25 03:38 [place] % (Auto) 9.5 % 01/19/25 03:38 Eos % (Auto) 0.2 % 01/19/25 03:38 Baso % (Auto) 0.3 % 01/19/25 03:38 Neut # (Auto) 4.44 10^3/uL (1.8-7.7) 01/19/25 03:38 Lymph # (Auto) 1.3 10^3/uL (0.8-4.8) 01/19/25 03:38 [place] # (Auto) 0.6 10^3/uL (0.2-0.9) 01/19/25 03:38 Eos # (Auto) 0.0 10^3/uL (0.0-0.8) 01/19/25 03:38 Baso # (Auto) 0.0 10^3/uL (0.0-0.1) 01/19/25 03:38 Nucleated RBC % (auto) 0 % 01/19/25 03:38 Nucleated RBCs # 0.0 /100WBC 01/19/25 03:38 APTT 38.2 SECONDS (23.9-36.7) H 01/17/25 09:13 Specimen Type Arterial 01/16/25 04:15 Sample Site Radial, right 01/16/25 04:15 ABG pH 7.42 (7.35-7.45) 01/16/25 04:15 ABG pCO2 37.7 mmHg (35-45) 01/16/25 04:15 ABG pO2 56.1 mmHg (80.0-100.0) L 01/16/25 04:15 ABG PO2/FiO2 Ratio 267 01/16/25 04:15 ABG HCO3 24.3 mmol/L (22-26) 01/16/25 04:15 ABG Base Excess 0.0 mmol/L (-2.0-2.0) 01/16/25 04:15 [place] Test Pos 01/16/25 04:15 Hematocrit 43.8 % (42-52) 01/16/25 04:15 O2 Delivery Device Room air 01/16/25 04:15 FiO2 21.0 % 01/16/25 04:15 Visitor Information Assistant ID [email or web address] 01/16/25 04:15 Sodium 138 mmol/L (136-145) 01/21/25 05:39 Potassium 3.8 mmol/L (3.5-5.1) 01/21/25 05:39 Chloride 103 mmol/L (98-107) 01/21/25 05:39 Carbon Dioxide 23 mmol/L (22-29) 01/21/25 05:39 Anion Gap 15.8 (5-19) 01/21/25 05:39 BUN 20 mg/dL (8-23) 01/21/25 05:39 Creatinine 0.9 mg/dL (0.7-1.2) 01/21/25 05:39 GFR Calculation Not Reportable 01/21/25 05:39 Glucose 78 mg/dL (65-115) 01/21/25 05:39 Calculated Osmolality 287 mOsm/kg (285-295) 01/21/25 05:39 Calcium 8.6 mg/dL (8.5-10.5) 01/21/25 05:39 Phosphorus 2.9 mg/dL (2.5-4.5) 01/19/25 03:38 Magnesium 2.0 mg/dL (1.7-2.3) 01/18/25 04:40 Total Bilirubin 0.6 mg/dL (0.15-1.2) 01/18/25 04:40 AST 13 U/L (0-40) 01/18/25 04:40 ALT 9 U/L (0-41) 01/18/25 04:40 Alkaline Phosphatase 130 U/L (40-130) 01/18/25 04:40 Troponin T Baseline 26 ng/L (0-15) H 01/15/25 14:10 Troponin T 120 Minute 24.31 ng/L (0-15) H 01/15/25 15:53 Delta Troponin T -1.69 ABS# (0-10) L 01/15/25 15:53 Troponin T Hi Sens 6Hr 23.89 ng/L (0-15) H 01/15/25 19:43 Troponin T Hi Sens 6Hr Delta -2.11 ng/L (0-12) L 01/15/25 19:43 NT-Pro-B Natriuret Pep 1545 pg/mL (0-450) H 01/15/25 16:01 Total Protein 5.6 g/dL (6.6-8.7) L 01/18/25 04:40 Albumin 2.8 g/dL (3.5-5.2) L 01/18/25 04:40 Globulin 2.8 g/dL (1.3-4.6) 01/18/25 04:40 Triglycerides 77 mg/dL (0-150) 01/17/25 02:32 Cholesterol 181 mg/dL (0-200) 01/17/25 02:32 LDL Cholesterol, Calc 112 mg/dL (50-129) 01/17/25 02:32 Total VLDL Cholesterol 15 mg/dL (0-30) 01/17/25 02:32 HDL Cholesterol 54 mg/dL (60-100) L 01/17/25 02:32 Cholesterol/HDL Ratio 3.35 mg/dL (1.0-5.00) 01/17/25 02:32 Vitamin B12 > 2000 pg/mL (232-1245) H 01/20/25 17:22 25-OH Vitamin D Total 9 ng/mL (30-100) L 01/21/25 05:39 TSH 4.33 uIU/mL (0.27-4.20) H 01/17/25 02:32 Urine Color [place] (Yellow) A 01/18/25 15:50 Urine Appearance Cloudy (CLEAR) A 01/18/25 15:50 Urine pH 6.0 (5-7) 01/18/25 15:50 Ur Specific [place] 1.019 (1.005-1.030) 01/18/25 15:50 Urine Protein 1+ (Negative) A 01/18/25 15:50 Urine Glucose (UA) Negative (Normal) 01/18/25 15:50 Urine Ketones Negative (Negative) 01/18/25 15:50 Urine Blood 3+ (Negative) A 01/18/25 15:50 Urine Nitrate Negative (Negative) 01/18/25 15:50 Urine Bilirubin Negative (Negative) 01/18/25 15:50 Urine Urobilinogen 1.0 mg/dL (Negative) 01/18/25 15:50 Ur Leukocyte Esterase 1+ (Negative) A 01/18/25 15:50 Urine RBC >100 /hpf (0-2) H 01/18/25 15:50 Urine WBC 21-50 /hpf (0-5) H 01/18/25 15:50 Ur Squamous Epith Cells 6-10 /hpf (0-5) 01/18/25 15:50 Amorphous Sediment Not Reportable 01/18/25 15:50 Urine Bacteria 1+ /hpf (NONE) H 01/18/25 15:50 Hyaline Casts 6.17 /lpf 01/18/25 15:50 Vitals Last Vital Signs Temp 98.4 F 01/21/25 12:00 Pulse 77 01/21/25 12:00 Resp 18 01/21/25 12:00 BP 102/63 01/21/25 12:00 Pulse Ox 95 01/21/25 12:00 O2 Del Method Room Air 01/21/25 12:00 O2 Flow Rate 2 01/17/25 12:00 Discharge Plan Discharge Patient Disposition: Xfer SNF Condition: Stable Prescriptions: New Eliquis DVT-PE Treat 30D Start 5 mg (74 tabs) tablets,dose pack See Rx Instructions .ROUTE .COMPLEX Qty: 74 0RF Rx Instructions: orally per package directions metoprolol tartrate 25 mg Tablet 25 mg PO BID@0900,2100 Qty: 60 0RF Continued acetaminophen [Tylenol] 325 mg Tablet 650 mg PO QID PRN (Reason: Pain) donepezil 10 mg Tablet 10 mg PO QPM memantine 10 mg Tablet 10 mg PO BID Discharge Orders: Discharge Order (Routine); Ordered 01/21/25 Ordered By: Steve Robles Other Ambulatory Orders: MCT/Event Monitor 30 Days (Routine) Timeframe: 1 Day Facility: [facility] - Location: Radiology Ordered By: Lisa Miles Referrals: Daniel Dozier MD [Primary Care Provider, Internal Medicine] - 01/24/25 2:30 pm Mohamud Rock MD [Physician, Orthopedics] - 01/31/25 3:00 pm Alpesh Rendon M.D [Physician, Cardiology] - 02/27/25 12:[address] [facility] [place], [Occupational Therapist] Dvaid Byers MD [Hospitalist, Oncology] - 02/18/25 4:00 pm Discharge Diet: Cardiac Discharge Activity: As per PT/OT instructions Patient Instructions: Metoprolol (By mouth), Apixaban (By mouth), Enlarged Prostate (BPH) (DC), Dementia (ED), Deep Vein Thrombosis (DC), Opioid Safety Activity Restrictions/Additional Instructions: wear sling on arm. may remove for bathing Plan of Treatment: heart monitoring for 30 days to evaluate for arrhythmia to explain falls. Discharge Attestations Time Spent in Discharge Care*: greater than 30 min Quality Metrics Clinical Quality Measures [ No reported AMI, CVA or VTE this stay (Had DVT prior to admission)] Coding Level of Care Code Acute Code for Chg Fwd Diagnoses Pulmonary embolism I26.94 Pulmonary embolism type: multiple subsegmental (without acute cor pulmonale) Fx clavicle shaft-closed S42.025A Encounter type: initial encounter Fracture alignment: nondisplaced Laterality: left Syncope R55 Syncope type: unspecified Collapse R55 Acute deep vein thrombosis (DVT) of femoral vein of right lower extremity I82.411 DVT location: lower extremity Affected thrombotic vein of extremity: femoral Chronicity: acute Laterality: right Old lacunar stroke without late effect Z86.73 Cardiac arrhythmia I49.9 Dementia F03.90 BPH (benign prostatic hyperplasia) N40.0
--- NOTE | 2025-01-21 13:57 | PC.NURSE ---
Report is called to TAMRA Bess at [facility] at [phone].
--- NOTE | 2025-01-21 14:24 | PC.NURSE ---
Patient's son is transporting Adair to [facility] via private car.
== END 2025-01-21 14:24 | disposition skilled nursing facility (03) | DRG 299 ==
LOC: ER 16:18 → ICU 16:43 → CSU 01-16 13:53
PROVIDERS: Internal Medicine; Admitting Provider Internal Medicine; Emergency Provider Family Medicine; PCP Internal Medicine; Visit Provider Internal Medicine
DX: I82.411 Acute embolism and thrombosis of right femoral vein (principal); I26.94 Multiple subsegmental thrombotic pulmonary emboli without acute cor pulmonale; I47.10 Supraventricular tachycardia, unspecified; S42.035A Nondisplaced fracture of lateral end of left clavicle, initial encounter for closed fracture; W31.89XA Contact with other specified machinery, initial encounter; I49.9 Cardiac arrhythmia, unspecified; F03.90 Unspecified dementia, unspecified severity, without behavioral disturbance, psychotic disturbance, mood disturbance, and anxiety; N40.0 Benign prostatic hyperplasia without lower urinary tract symptoms; I48.91 Unspecified atrial fibrillation; R55 Syncope and collapse; Z79.01 Long term (current) use of anticoagulants; Z87.891 Personal history of nicotine dependence; Z86.73 Personal history of transient ischemic attack (TIA), and cerebral infarction without residual deficits
CPT/HCPCS: 36415; 36600; 51702; 51798; 70450; 70553; 71260; 72125; 73000; 73030; 73200; 74176; 80048; 80053; 80061; 81001; 82306; 82607; 82803; 83735; 83880; 84100; 84443; 84484; 85025; 85730; 87077; 87086; 87186; 93005; 93306; 93880; 93970; 94664; 96372; 96376; 97110; 97116; 97162; 97167; 97530; 97535; 99285; A4565; A9270; J1644; J2060; J2270; J2470; J3420; J3490; J7030; J9999

== ENCOUNTER → 2025-01-31 14:41 | Outpatient (BNVA) | payer OTHER, SELFPAY | PROVIDERS: PCP Internal Medicine; Visit Provider Orthopaedic Surgery | DX: S42.025D Nondisplaced fracture of shaft of left clavicle, subsequent encounter for fracture with routine healing (principal); X58.XXXD Exposure to other specified factors, subsequent encounter | CPT/HCPCS: 73030; 99213 ==

== ENCOUNTER 2025-02-18 15:30 | Oncology outpatient (recurring) (ONCR) | payer OTHER, SELFPAY | END 2025-03-04 23:59 | disposition home or self-care (01) | PROVIDERS: PCP Internal Medicine; Visit Provider Internal Medicine Medical Oncology | DX: I26.94 Multiple subsegmental thrombotic pulmonary emboli without acute cor pulmonale (principal); I48.91 Unspecified atrial fibrillation; Z79.01 Long term (current) use of anticoagulants; Z87.430 Personal history of prostatic dysplasia | CPT/HCPCS: 99205 ==

== ENCOUNTER → 2025-03-04 15:04 | Outpatient (BNVA) | payer OTHER, SELFPAY | PROVIDERS: PCP Family Medicine; Visit Provider Orthopaedic Surgery | DX: S42.002D Fracture of unspecified part of left clavicle, subsequent encounter for fracture with routine healing (principal); X58.XXXD Exposure to other specified factors, subsequent encounter | CPT/HCPCS: 73000; 99213 ==

== ENCOUNTER → 2025-04-16 13:38 | Outpatient (BNVA) | payer OTHER, SELFPAY | PROVIDERS: PCP Family Medicine; Visit Provider Internal Medicine Cardiovascular Disease | DX: R55 Syncope and collapse (principal); I48.0 Paroxysmal atrial fibrillation; Z79.01 Long term (current) use of anticoagulants; I47.10 Supraventricular tachycardia, unspecified; I65.23 Occlusion and stenosis of bilateral carotid arteries; I95.9 Hypotension, unspecified; I49.3 Ventricular premature depolarization; I49.1 Atrial premature depolarization; Z86.73 Personal history of transient ischemic attack (TIA), and cerebral infarction without residual deficits; Z86.711 Personal history of pulmonary embolism; Z87.891 Personal history of nicotine dependence | CPT/HCPCS: 93005; 99204 ==

== ENCOUNTER 2025-08-19 11:36 | Oncology outpatient (recurring) (ONCR) | payer OTHER, SELFPAY ==
[2025-08-19 12:10] LABS: Hematocrit 44.7 % (37-53); Hemoglobin 14.60 g/dL (11.27-16.99); Mean Corpuscular HGB Conc 32.7 g/dL (30-55); Mean Corpuscular Hemoglobin 33.3 pg (27-33); Mean Corpuscular Volume 102.1 fl (82-101); Nucleated Red Blood Cells % 0 %; Platelet Count 209 10^3/cmm (157-399); Red Blood Count 4.38 10^6/uL (3.85-5.65); White Blood Count 5.85 10^3/uL (3.29-11.43)
[2025-08-19 12:44] LABS: Alanine Aminotransferase 34 U/L (0-41); Albumin Level 3.5 g/dL (3.5-5.2); Alkaline Phosphatase 116 U/L (40-130); Anion Gap 11.1 (5-19); Aspartate Amino Transferase 26 U/L (0-40); Blood Urea Nitrogen 18 mg/dL (8-23); Calcium 8.6 mg/dL (8.5-10.5); Carbon Dioxide 28 mmol/L (22-29); Chloride 105 mmol/L (98-107); Globulin 2.8 g/dL (1.3-4.6); Glucose 131 mg/dL (65-115); Osmolality Calculated 294 mOsm/kg (285-295); Potassium 4.1 mmol/L (3.5-5.1); Sodium 140 mmol/L (136-145); Total Protein 6.3 g/dL (6.6-8.7)
== END 2025-08-19 23:59 | disposition home or self-care (01) ==
PROVIDERS: PCP Family Medicine; Visit Provider Internal Medicine Medical Oncology
DX: I26.94 Multiple subsegmental thrombotic pulmonary emboli without acute cor pulmonale (principal); N40.0 Benign prostatic hyperplasia without lower urinary tract symptoms; F17.220 Nicotine dependence, chewing tobacco, uncomplicated; Z79.01 Long term (current) use of anticoagulants
CPT/HCPCS: 80053; 84153; 85025; 99214